=== PATIENT | female | born 1955 | race African-American/Black ===

== ENCOUNTER 2021-02-20 13:04 | Emergency (ER) | payer MEDICARE, MEDICAID, SELFPAY ==
[2021-02-20 16:48] VITALS: BP 135/71; PULSE 73; RESP 16; TEMP 37.1; O2SAT 94; BMI 29.0
--- NOTE | 2021-02-20 18:14 | ED_ITS ---
HPI - General Adult General Chief complaint: General Medical Stated complaint: Shingles Time Seen by Provider: 02/20/21 18:14 History of Present Illness HPI narrative: 65-year-old female with past medical history of diabetes, COPD, Congestive heart failure, hydronephrosis is here today for rash to her right side of her head just behind her ear. Patient reports that this rash is on 1 side. Patient [place] [facility] and was sent home with valacyclovir 1000 mg b.i.d. for 7 days. Patient reports that she finished the treatment yesterday, and reports that today she has continues to have pain, pruritus. Patient reports that the rash has not spread. Patient reports of earache. No eye pain, sore throat, fever or chills. Related Data Previous Rx's Medication Instructions Recorded hydroxyzine HCl 25 mg tablet 25 mg PO BID PRN #14 tab 02/20/21 oxycodone 10 mg tablet 10 mg PO Q8H PRN #10 tab 02/20/21 oxycodone 5 mg tablet 5 mg PO Q4-6H PRN #5 tab 02/20/21 prednisone 20 mg tablet 40 mg PO DAILY 5 Days #10 tab 02/20/21 valacyclovir 1 gram tablet 1,000 mg PO Q8H 7 Days #21 tab 02/20/21 Allergies Allergy/AdvReac Type Severity Reaction Status Date / Time morphine [MORPHINE] Allergy Mild HIVES AT Unverified 11/11/19 16:15 INJECTION SITE aspirin [Aspirin] Allergy Unknown HIVES, Unverified 11/11/19 16:15 itching, hives benazepril Allergy Unknown Verified 09/14/14 00:00 codeine [Codeine] Allergy Unknown HIVES, Unverified 11/11/19 16:15 itching, hives dexamethasone [From DECADRON] Allergy Unknown HIVES ITCH Unverified 11/11/19 16:15 ibuprofen [From Motrin] Allergy Unknown HIVES, Unverified 11/11/19 16:15 itching Iodinated Contrast Media Allergy Unknown ANAPHYLAXIS Unverified 11/11/19 16:15 [IV Dye, Iodine Containing] levofloxacin [From LEVAQUIN] Allergy Unknown HIVES Unverified 11/11/19 16:15 NSAIDS (Non-Steroidal Allergy Unknown HIVES Unverified 11/11/19 16:15 Anti-Inflamma [Nsaids] povidone-iodine Allergy Unknown HIVES ITCH Unverified 11/11/19 16:15 [From BETADINE] soap [From BETADINE] Allergy Unknown HIVES ITCH Unverified 11/11/19 16:15 tramadol Allergy Unknown itching, Verified 09/14/14 00:00 hives decadron Allergy Unknown hives Uncoded 09/14/14 00:00 From Compazine Allergy Unknown HIVES Uncoded 11/11/19 16:15 From Lotensin Allergy Unknown HIVES Uncoded 11/11/19 16:15 From Toradol Allergy Unknown HIVES Uncoded 11/11/19 16:15 From Ultram Allergy Unknown HIVES Uncoded 11/11/19 16:15 IVP dye Allergy Unknown itching, Uncoded 09/14/14 00:00 hives Prochlorperazine Maleate Allergy Unknown oral Uncoded 09/14/14 00:00 itching Review of Systems Review of Systems: Constitutional : No Weight loss, No Fever, No Chills, No Night Sweats, No Fatigue, No Malaise ENT/Mouth : No Hearing loss, right Ear Pain, No Nasal Congestion, No Sinus Pa in, No Hoarseness, No sore throat, No Rhinorrhea, No Swallowing Difficulty Eyes: No Eye Pain, No Swelling, No Redness, No Foreign Body, No Discharge, No Vision Changes Cardiovascular : No Chest Pain, No SOB, No Dyspnea on Exertion, No Orthopnea, No Edema, No Palpitations Respiratory : No Cough, No Sputum, No Wheezing, No Smoke Exposure, No Dyspnea Gastrointestinal : No Nausea, No Vomiting, No Diarrhea, No Constipation, No abdominal Pain, No Hematochezia, No Melena Genitourinary : no irregular bleeding, No Dysuria, No Urinary Frequency, No Hematuria, No Urinary Incontinence, No Urgency, No Flank Pain, No Urinary Flow Changes, No Hesitancy Musculoskeletal : No joint pain, No Myalgias, No Joint Swelling Skin : No Skin Lesions, rash Neuro : No Weakness, No Numbness, No Paresthesias, No Loss of Consciousness, No Dizziness, No Headache Psych : No Anxiety/Panic, No Depression, No SI/HI/AH/VH, No Social Issues, Yes all other systems are reviewed and are negative PMFSH Social History Social History Advance Directives: No Advance Directives Information Provided: No Physical Exam Vital Signs: Vital Signs: Last Vital Signs Temp 98.7 F 02/20/21 16:48 Pulse 73 02/20/21 16:48 Resp 16 02/20/21 16:48 BP 135/71 02/20/21 16:48 Pulse Ox 94 02/20/21 16:48 BMI result Body Mass Index 29.0 Const: General: healthy appearing, no acute distress and well developed Nutritional Appearance: well nourished Orientation/consciousness: patient oriented x3 HENMT: Head: Yes normocephalic, Yes atraumatic and Yes other ( crusted areas behind her right ear, shing[place] [facility] Face and sinus: Yes normal facial exam Mouth: Normal oral and palatal mucosa present Throat: Yes posterior oropharynx normal, Yes tonsils normal and Yes uvula midline Eyes: General: appearance normal, both eyes and all related structures Neck: Neck: Yes normal visual inspection, Yes full ROM and Yes trachea midline Thyroid: Thyroid normal Resp: Effort & Inspection: normal respiratory effort, able to speak in complete sentences, no tracheal deviation and symmetric chest movement Auscultation: clear to auscultation bilaterally Cardio: Jugular venous distension: no JVD Rate: regular rate Heart sounds: S1 normal heart sound present, S2 normal heart sound present, no gallops and no murmurs GI: Inspection: Yes normal to inspection and No distended Palpation (GI): Soft to palpation, not firm, nontender and No hepatosplenomegaly present Auscultation: normal bowel sounds : General: Yes no CVA tenderness Back/Spine/Pelvis: Back: no CVA tenderness Skin: General skin exam: elasticity normal, turgor normal and dry skin Neuro: General: patient oriented x3 Psych: Appearance: grossly normal Mental Status: mental status grossly normal Speech and movement: Normal speech and movement present Affect: normal affect Attitude: cooperative Thought process: Normal thought process present Thought content: Normal thought content present Insight: Good insight present (Psych) Judgement: Good judgement present (Psych) Course Course Course Narrative: 65-year-old female with past medical history of diabetes, COPD, Congestive heart failure, hydronephrosis is here today for shingles to her right scalp area behind her right ear. Right ear exam shows no involvement. No of involvement in her right eye. I will check her creatinine level as she is a diabetic and has had hydronephrosis in the past and has seen test lead. I will give her dose of valacyclovir, prednisone, oxycodone and hydroxyzine for Pruritus. Reevaluation(s) Reevaluation #1: BUN 16, creatinine 0.91, creatinine clearance 68.6, GFR > 60. I will send patient home with full psych liver 1 g every 8 hours for 7 more days. Prednisone 40 mg for 5 days. Patient can take hydroxyzine. Time: 19:20 Medical Decision Making Lab Data Result diagrams: 02/20/21 18:54 Labs: Lab Results 02/20/21 Range/Units 18:54 BUN 16 (9-16) mg/dL Creatinine 0.91 (0.5-1.4) mg/dL Estim Creat Clear Calc 68.6 Estimated GFR > 60 Discharge Plan Discharge Clinical Impression: Shingles Qualifiers: Herpes zoster complications: without complications Qualified Code(s): B02.9 - Zoster without complications Patient Disposition: Home, Self-Care Instructions: Shingles (ED) Additional Instructions: You were diagnosed week ago with shingles. You continue to have pain, there is no spread of the rash. You will continue 7 more days of antiviral medication along with prednisone for 5 days. You will receive oxycodone 10 mg for pain. You also will receive medication to help with the itch. Please follow-up with your primary care provider for further care. Prescriptions: New valacyclovir 1 gram tablet 1,000 mg PO Q8H 7 Days Qty: 21 RF: 0 oxycodone 5 mg tablet 5 mg PO Q4-6H PRN (Reason: pain) Qty: 5 RF: 0 hydroxyzine HCl 25 mg tablet 25 mg PO BID PRN (Reason: itching) Qty: 14 RF: 0 prednisone 20 mg tablet 40 mg PO DAILY 5 Days Qty: 10 RF: 0 oxycodone 10 mg tablet 10 mg PO Q8H PRN (Reason: pain) Qty: 10 RF: 0 Referrals: Melinda Shin MD [Primary Care Provider] - 10 days ( Shingles) Interventions: ED Discharge Assessment Last Done: 02/20/21 19:45 Discharge Date/Time: 02/20/21 19:46
[2021-02-20] MEDS: oxyCODONE HCl Immed Release 5 MG TABLET PO (18:47)
[2021-02-20] MEDS: predniSONE 20 MG TABLET 40 MG PO (18:47)
[2021-02-20] MEDS: hydrOXYzine HCL 25 MG TABLET PO (18:56)
[2021-02-20 19:15] LABS: Blood Urea Nitrogen 16 mg/dL (9-16); Creatinine Clr Calc Pharmacy 68.6; Estimated Glomerular Filt Rate > 60
== END 2021-02-20 19:46 | disposition home or self-care (01) ==
PROVIDERS: Nurse Practitioner Family; Emergency Provider Emergency Medicine Emergency Medical Services; PCP Internal Medicine
DX: B02.9 Zoster without complications (principal); N13.30 Unspecified hydronephrosis; E11.9 Type 2 diabetes mellitus without complications; I50.9 Heart failure, unspecified; J44.9 Chronic obstructive pulmonary disease, unspecified
CPT/HCPCS: 36415; 82565; 84520; 99283

== ENCOUNTER 2021-08-24 16:17 | Emergency (ER) | payer MEDICARE, MEDICAID, SELFPAY ==
--- NOTE | ~2021-08-24 | CT_ITS ---
EXAMINATION: CT ABDOMEN AND PELVIS WITHOUT CONTRAST CLINICAL INFORMATION: Left lower quadrant hypogastric pain COMPARISON: CT abdomen and pelvis 03/06/2014 TECHNIQUE: Multidetector volumetric imaging was performed from the superior aspect of the liver through the pubic symphysis. Sagittal and coronal reformatted images were obtained on the technologist's workstation. This CT examination was performed using dose optimization techniques as appropriate, variously including the following: *Automated exposure control *Adjustment of mA and/or kV according to patient size (this includes techniques or standardized protocols for targeted exams where dose is matched to indication/reason for exam; i.e. extremities or head) *Use of iterative reconstruction technique DLP: 1020 mGy-cm FINDINGS: LUNG BASES: Mild coarsening reticulation at the lung bases compatible some combination of mild atelectasis and mild fibrosis are in pacer lead tip terminates in the right ventricle. Surgical clips in the left breast with an adjacent 3 cm low-density collection. LIVER, GALLBLADDER, AND BILIARY TREE: Normal hepatic attenuation. No morphologic features of cirrhosis. No liver lesions are seen. Mild intrahepatic biliary ductal dilation. Proximal extra hepatic bile duct measures 1 cm in diameter, at the upper limits of normal status post cholecystectomy. Status post cholecystectomy with surgical clips in the gallbladder fossa. PANCREAS: Mild pancreatic atrophy. No pancreatic lesion or peripancreatic inflammatory change. SPLEEN: Unremarkable. ADRENAL GLANDS: Unremarkable. KIDNEYS AND URETERS: Small benign appearing low-density cysts measuring 2.1 cm in the right upper pole and left mid pole. No radiodense urinary tract calculi. No perinephric collections. No hydronephrosis. BLADDER: Unremarkable. GASTROINTESTINAL TRACT: Colonic diverticulosis. No evidence of acute diverticulitis. Small amount of formed stool in the sigmoid colon. Remainder of the colon is decompressed. No dilated bowel loops. Unremarkable appearance of the stomach. Appendix is not identified. No inflammatory changes at the cecal base. No ascites or free air. Subcutaneous material adjacent to the base of the cecum. Surgical clips in the upper pelvis. ABDOMINAL WALL: Healed midline abdominal incision. No hernia. LYMPH NODES: No lymphadenopathy. VASCULAR: Mildly tortuous abdominal aorta. Mild vascular calcifications. No abdominal aortic aneurysm. PELVIC VISCERA: Status post hysterectomy. OSSEOUS STRUCTURES: No acute fracture or suspicious osseous lesion. Mild multilevel degenerative disc disease. Lower lumbar facet arthrosis. CT/CT abdomen pelvis wo con IMPRESSION: 1. No acute intra-abdominal process identified. 2. Colonic diverticulosis without evidence of acute diverticulitis. The right, transverse and descending colon are decompressed limiting assessment for colonic wall thickening. No definite colonic wall thickening or pericolonic inflammatory changes to suggest colitis. 3. Status post cholecystectomy. Mild dilation of the intrahepatic bile ducts, which may be normal for this patient, appearing minimally more prominent than on prior of 2014. Correlate with LFTs for clinical significance. 4. Small 3 cm low-density collection or nodule in the left breast adjacent surgical clips. Correlate with mammographic history.
[2021-08-24 16:22] VITALS: BP 128/80; PULSE 88; O2SAT 98
[2021-08-24 16:32] VITALS: BP 100/62; PULSE 99; RESP 18; TEMP 36.7; O2SAT 98; BMI 39.4
--- NOTE | 2021-08-24 17:33 | PC.NURSE ---
Pt now reporting CP and described as severe. EKG in triage.
--- NOTE | 2021-08-24 17:35 | ECG_ITS ---
Test Reason : cp Blood Pressure : / mmHG Vent. Rate : 097 BPM Atrial Rate : 097 BPM P-R Int : 188 ms QRS Dur : 094 ms QT Int : 374 ms P-R-T Axes : 056 -39 057 degrees QTc Int : 474 ms Normal sinus rhythm Possible Left atrial enlargement Left axis deviation Left ventricular hypertrophy ( R in aVL , [place] product ) Abnormal ECG When compared with ECG of 22-JUL-2014 13:46, No significant change was found Referred By: Generic ED Physician Electronically Signed By:REEMA SUAZO
--- NOTE | 2021-08-24 17:40 | PC.NURSE ---
Pt refusing Blood draw. Requesting port be accessed for triage.
--- NOTE | 2021-08-24 17:48 | PC.NURSE ---
EKG obtatined. Shown to Jia SPARROW due to MD being with high acuity patient.
--- NOTE | 2021-08-24 20:20 | ED_ITS ---
HPI - Abdominal Pain General Chief Complaint: Abdominal Pain Stated Complaint: ABD PAIN X 1 WEEK Time Seen by Provider: 08/24/21 20:19 Source: patient Mode of arrival: ambulatory Limitations: no limitations History of Present Illness HPI narrative: 65-year-old female with a history of diverticulitis presents today with 4 days of abdominal pain located directly above and below the belly button she reports the pain as a 9/10 the pain does not radiate, nothing makes it better, it is made worse by eating and drinking, she reports 4 bowel movements since arrival to the emergency department. She reports her stool as soft it is not dark or containing blood to her knowledge. She also reports that she is burping and it smells like feces?. She reports to me that she was discharged 4 days ago from [facility] and she does not want to return there due to the fact that they were treating her for CHF/CKD/electrolyte abnormalities and not for her abdomen, she also thinks they believe she is med seaking. She reports only taking Tylenol and omeprazole however this has provided no relief. Related Data Previous Rx's Medication Instructions Recorded hydroxyzine HCl 25 mg tablet 25 mg PO BID PRN itching #14 tabs 02/20/21 oxycodone 10 mg tablet 10 mg PO Q8H PRN pain #10 tabs 02/20/21 oxycodone 5 mg tablet 5 mg PO Q4-6H PRN pain #5 tabs 02/20/21 prednisone 20 mg tablet 40 mg PO DAILY 5 days #10 tabs 02/20/21 valacyclovir 1 gram tablet 1,000 mg PO Q8H 7 days #21 tabs 02/20/21 nitrofurantoin macrocrystal 100 mg 100 mg PO BID 7 days #14 caps 08/25/21 capsule Allergies Allergy/AdvReac Type Severity Reaction Status Date / Time morphine [MORPHINE] Allergy Mild HIVES AT Unverified 11/11/19 16:15 INJECTION SITE aspirin [Aspirin] Allergy Unknown HIVES, Unverified 11/11/19 16:15 itching, hives benazepril Allergy Unknown Verified 09/14/14 00:00 codeine [Codeine] Allergy Unknown HIVES, Unverified 11/11/19 16:15 itching, hives dexamethasone [From DECADRON] Allergy Unknown HIVES ITCH Unverified 11/11/19 16:15 ibuprofen [From Motrin] Allergy Unknown HIVES, Unverified 11/11/19 16:15 itching Iodinated Contrast Media Allergy Unknown ANAPHYLAXIS Unverified 11/11/19 16:15 [IV Dye, Iodine Containing] levofloxacin [From LEVAQUIN] Allergy Unknown HIVES Unverified 11/11/19 16:15 NSAIDS (Non-Steroidal Allergy Unknown HIVES Unverified 11/11/19 16:15 Anti-Inflamma [Nsaids] povidone-iodine Allergy Unknown HIVES ITCH Unverified 11/11/19 16:15 [From BETADINE] soap [From BETADINE] Allergy Unknown HIVES ITCH Unverified 11/11/19 16:15 tramadol Allergy Unknown itching, Verified 09/14/14 00:00 hives decadron Allergy Unknown hives Uncoded 09/14/14 00:00 From Compazine Allergy Unknown HIVES Uncoded 11/11/19 16:15 From Lotensin Allergy Unknown HIVES Uncoded 11/11/19 16:15 From Toradol Allergy Unknown HIVES Uncoded 11/11/19 16:15 From Ultram Allergy Unknown HIVES Uncoded 11/11/19 16:15 IVP dye Allergy Unknown itching, Uncoded 09/14/14 00:00 hives Prochlorperazine Maleate Allergy Unknown oral Uncoded 09/14/14 00:00 itching Review of Systems Review of Systems Constitutional : No Weight loss, No Fever, No Chills, No Fatigue, No Malaise ENT/Mouth : No sore throat, No Rhinorrhea Eyes: No Eye Pain, No Swelling, No Redness Cardiovascular : No Chest Pain, No SOB, No Dyspnea on Exertion, No Orthopnea, No Edema, No Palpitations Respiratory : No Cough, No Sputum, No Wheezing Gastrointestinal : + Belching, + Abdominal Pain, No Nausea, No Vomiting, No Diarrhea, No Constipation, No Hematochezia, No Melena Genitourinary : No Dysuria, No Urinary Frequency, No Hematuria, Musculoskeletal : No joint pain, No Myalgias, No Joint Swelling Skin : No Skin Lesions, No rash Neuro : No Weakness, No Numbness, No Dizziness, No Headache Psych : No Anxiety/Panic, No Depression Heme/Lymph: No Bruising, No Bleeding,No Lymphadenopathy Endocrine : No Polyuria, No Polydipsia All other systems reviewed and are negative Yes all other systems are reviewed and are negative [facility] Past Medical History Attestation statement: The following information was validated with the patient. Source: old records reviewed and nursing notes reviewed Social History Social History Alcohol intake: never Patient Tobacco Use Status: Never used Tobacco Advance Directives: No Advance Directives Information Provided: Yes Physical Exam ED Vital Signs: Vital Signs - 24 hr 08/24/21 16:32 08/24/21 21:39 08/24/21 22:00 Temperature 98.1 F Pulse Rate 99 104 H 101 H Respiratory Rate 18 16 16 Blood Pressure 100/62 102/81 Pulse Oximetry 98 98 98 Oxygen Delivery Method Room Air Room Air BMI result Body Mass Index 39.4 VSS Appearance: Alert.? Oriented X3.? No acute distress.? Head: Normocephalic, atraumatic, no step-offs or deformities Eyes: Pupils equal, round and reactive to light.? ENT: Pharynx normal.? Neck: Normal inspection.? Neck supple.? CVS: Normal heart rate and rhythm.? Pulses normal.? Respiratory: No respiratory distress.? Breath sounds normal.? Abdomen: +Tender around the umbilicus and the LLQ, Soft, normal bowel sounds Skin: Skin warm and dry.? Normal skin color.? Normal skin turgor.? Extremities: No lower extremity edema.? No calf ttp. 5/5 strength to bilateral upper and lower extremities Back: No midline tenderness, no C-spine tenderness, full range of motion, no CVA tenderness bilaterally Neuro: Oriented X 3.? No motor deficit.? No sensory deficit. CN 2-12 intact Course Reevaluation(s) Reevaluation #1: CBC within normal limits. Chemistry pending. Urine pending. CT of the abdomen and pelvis pending. Time: 22:05 Reevaluation #2: CT of the abdomen and pelvis is no acute findings,LFTs normal. At approximately 2300 patient complained chest pain requested dilauded and morphine therefore an EKG and troponin were obtained. EKG was nonischemic and troponin was negative. Patient noted to have a UTI could be contributing to pain. Time: 01:37 Reevaluation #3: Discussed CT, labs, urine with patient. At this time patient will be discharged home with prompt PCP follow-up. I advised her to follow-up with Gastroenterology and return with new or worsening symptoms which are outlined on her discharge. Pending 2nd troponin then plan is for patient to be discharged home. Report given to Dr. Galeas. Time: 01:52 MDM - Abdominal Pain MDM Narrative Medical decision making narrative: 850 65-year-old female presents with abdominal pain she reports this pain has been intermittent for 4 days, she also reports ?belching that smells like feces?. She was recently discharged from [facility]. Physical exam: Tenderness around the umbilicus and left lower quadrant Unlikely AAA, acute abdomen, appendicitis, sbo. Order imaging to rule out diverticulitis and urine to r/o UTI. Unlikely appendicitis, pancreatitis Plan: Abdominal CT, basic labs, ua Patient eating and drinking at bedside w/o isuses. Medical Records Attestation: I reviewed the patient's medical records. Lab Data Attestation: I reviewed the patient's lab results. Result diagrams: 08/24/21 21:45 08/24/21 21:45 Labs: Lab Results 08/24/21 08/24/21 08/24/21 Range/Units 21:45 21:45 23:27 WBC 4.9 (4.8-10.8) X10*3/uL RBC 4.81 (4.20-5.50) X10*6/uL Hgb 13.1 (12.0-16.0) g/dl Hct 43.1 (37.0-47.0) % MCV 89.6 (80.0-98.0) fL MCH 27.2 (27.0-33.0) pg MCHC 30.4 L (31.0-35.0) g/dl RDW 13.7 (11.0-16.0) % Plt Count 192 (160-400) X10*3/uL MPV 9.5 (9.4-12.3) fL Immature Gran % (Auto) 0.4 (0.0-0.4) % Neut % (Auto) 44.3 L (45-73) % Lymph % (Auto) 42.8 H (20-40) % Greenlee % (Auto) 8.6 (2-11) % Eos % (Auto) 3.5 (0-4) % Baso % (Auto) 0.4 (0-2) % Lymph # (Auto) 2.1 (1.2-4.9) X10*3/uL Greenlee # (Auto) 0.4 (0.1-1.2) X10*3/uL Eos # (Auto) 0.2 (0.0-0.4) X10*3/uL Baso # (Auto) 0.0 (0.0-0.2) X10*3/uL Abs Immat Gran (auto) 0.02 (0.00-0.03) X10*3/uL Absolute Neuts (auto) 2.2 (2.0-8.3) x10*3/uL Absolute Nucleated RBC 0.000 (0.0-0.012) X10*3/uL Nucleated RBC % (auto) 0.0 (0.0-0.2) /100WBC Sodium 140 (135-145) mmol/L Potassium 4.4 (3.3-5.1) mmol/L Chloride 102 (96-108) mmol/L Carbon Dioxide 30 H (22-29) mmol/L Anion Gap 12 (12-20) BUN 13 (9-16) mg/dL Creatinine 0.89 (0.5-1.4) mg/dL Estim Creat Clear Calc 79.4 Estimated GFR > 60 Random Glucose 284 H (60-115) mg/dL Calcium 8.8 (8.4-10.2) mg/dL Total Bilirubin 0.2 (0.0-1.0) mg/dL Direct Bilirubin < 0.2 (0.0-0.5) mg/dL AST 12 (5-31) U/L ALT 16 (0-31) U/L Alkaline Phosphatase 87 (39-117) U/L Troponin I High Sens 9.3 (<3.5-17.0) ng/L Total Protein 6.9 (6.5-8.0) g/dL Albumin 3.5 (3.5-5.0) g/dL Lipase 17 (8-78) U/L Urine Color Urine Appearance Urine pH (5.0-8.0) Ur Specific Waucoma (1.005-1.025) Urine Protein (NEG-TRACE) MG/DL Urine Glucose (UA) (NEG) MG/DL Urine Ketones (NEG) MG/DL Urine Blood (NEG) Urine Nitrite (NEG) Ur Leukocyte Esterase (NEG) Urine RBC (0) /HPF Urine WBC (0-4) /HPF Ur Squamous Epith Cells /LPF Ur Renal Epithelial Cell /LPF Urine Bacteria /LPF Urine Mucus /LPF 08/24/21 Range/Units 23:27 WBC (4.8-10.8) X10*3/uL RBC (4.20-5.50) X10*6/uL Hgb (12.0-16.0) g/dl Hct (37.0-47.0) % MCV (80.0-98.0) fL MCH (27.0-33.0) pg MCHC (31.0-35.0) g/dl RDW (11.0-16.0) % Plt Count (160-400) X10*3/uL MPV (9.4-12.3) fL Immature Gran % (Auto) (0.0-0.4) % Neut % (Auto) (45-73) % Lymph % (Auto) (20-40) % Greenlee % (Auto) (2-11) % Eos % (Auto) (0-4) % Baso % (Auto) (0-2) % Lymph # (Auto) (1.2-4.9) X10*3/uL Greenlee # (Auto) (0.1-1.2) X10*3/uL Eos # (Auto) (0.0-0.4) X10*3/uL Baso # (Auto) (0.0-0.2) X10*3/uL Abs Immat Gran (auto) (0.00-0.03) X10*3/uL Absolute Neuts (auto) (2.0-8.3) x10*3/uL Absolute Nucleated RBC (0.0-0.012) X10*3/uL Nucleated RBC % (auto) (0.0-0.2) /100WBC Sodium (135-145) mmol/L Potassium (3.3-5.1) mmol/L Chloride (96-108) mmol/L Carbon Dioxide (22-29) mmol/L Anion Gap (12-20) BUN (9-16) mg/dL Creatinine (0.5-1.4) mg/dL Estim Creat Clear Calc Estimated GFR Random Glucose (60-115) mg/dL Calcium (8.4-10.2) mg/dL Total Bilirubin (0.0-1.0) mg/dL Direct Bilirubin (0.0-0.5) mg/dL AST (5-31) U/L ALT (0-31) U/L Alkaline Phosphatase (39-117) U/L Troponin I High Sens (<3.5-17.0) ng/L Total Protein (6.5-8.0) g/dL Albumin (3.5-5.0) g/dL Lipase (8-78) U/L Urine Color YELLOW Urine Appearance CLEAR Urine pH 5.5 (5.0-8.0) Ur Specific [place] 1.025 (1.005-1.025) Urine Protein NEG (NEG-TRACE) MG/DL Urine Glucose (UA) 250 H (NEG) MG/DL Urine Ketones NEG (NEG) MG/DL Urine Blood 3+ H (NEG) Urine Nitrite NEG (NEG) Ur Leukocyte Esterase 1+ H (NEG) Urine RBC 10-14 H (0) /HPF Urine WBC 0-2 (0-4) /HPF Ur Squamous Epith Cells 2+ /LPF Ur Renal Epithelial Cell TRACE /LPF Urine Bacteria TRACE /LPF Urine Mucus TRACE /LPF ECG Data Attestation: I personally reviewed and interpreted this ECG as follows: ECG interpretation date: 08/25/21 ECG interpretation time: 01:38 Prior ECG tracings: available for review Interpretation: Ventricular rate of 97, MI normal, QRS normal, QT/QTC normal. EKG shows normal sinus rhythm, left axis deviation, no ST elevations or inversions concerning for ischemia. No significant changes when compared to EKG of June 2014. Critical Care Time Critical Care Time Critical Care Time: No Discharge Plan Discharge Clinical Impression: Abdominal pain, Acute UTI Patient Disposition: Home, Self-Care Instructions: Abdominal Pain (ED) Additional Instructions: Take your medications as prescribed. If you were prescribed antibiotics today, it is important that you take your medication to their entirety, do not skip any doses, do not finish them early. Follow-up with your primary care provider this week. Return to the emergency department with new or worsening symptoms. Such as fevers, chills, chest pain, shortness of breath, nausea, vomiting, dizziness, headache, vision changes, lethargy In case of emergency call 911 CT/CT abdomen pelvis wo con IMPRESSION: ? 1. No acute intra-abdominal process identified. 2. Colonic diverticulosis without evidence of acute diverticulitis. The right, transverse and descending colon are decompressed limiting assessment for colonic wall thickening. No definite colonic wall thickening or pericolonic inflammatory changes to suggest colitis. 3. Status post cholecystectomy. Mild dilation of the intrahepatic bile ducts, which may be normal for this patient, appearing minimally more prominent than on prior of 2014. Correlate with LFTs for clinical significance. 4. Small 3 cm low-density collection or nodule in the left breast adjacent surgical clips. Correlate with mammographic history. Small breast nodule noted please follow up with your PCP Prescriptions: New nitrofurantoin macrocrystal 100 mg capsule 100 mg PO BID 7 Days Qty: 14 0RF Rx Instructions: must administer with a meal/food No Action valacyclovir 1 gram tablet 1,000 mg PO Q8H 7 Days Qty: 21 0RF oxycodone 5 mg tablet 5 mg PO Q4-6H PRN (Reason: pain) Qty: 5 0RF Rx Instructions: Patient may request fewer tablets than prescribed hydroxyzine HCl 25 mg tablet 25 mg PO BID PRN (Reason: itching) Qty: 14 0RF prednisone 20 mg tablet 40 mg PO DAILY 5 Days Qty: 10 0RF oxycodone 10 mg tablet 10 mg PO Q8H PRN (Reason: pain) Qty: 10 0RF Referrals: Melinda Shin MD [Primary Care Provider] - 2 days Oniel Forte [Physician] - 2 weeks Stand Alone Forms: Work/School Release
[2021-08-24 21:39] VITALS: BP 102/81; PULSE 104; RESP 16; O2SAT 98
[2021-08-24 21:50] LABS: MANUAL DIFF FLAG NO
[2021-08-24 21:58] LABS: Basophils Percent Auto 0.4 % (0-2); Eosinophils Absolute Auto 0.2 X10*3/uL (0.0-0.4); Eosinophils Percent Auto 3.5 % (0-4); Hematocrit 43.1 % (37.0-47.0); Hemoglobin 13.1 g/dl (12.0-16.0); Imm Gran Abs Auto 0.02 X10*3/uL (0.00-0.03); Imm Gran Pct Auto 0.4 % (0.0-0.4); Lymphocytes Absolute Auto 2.1 X10*3/uL (1.2-4.9); Lymphocytes Percent Auto 42.8 % (20-40); Mean Corpuscular HGB Conc 30.4 g/dl (31.0-35.0); Mean Corpuscular Hemoglobin 27.2 pg (27.0-33.0); Mean Corpuscular Volume 89.6 fL (80.0-98.0); Mean Platelet Volume 9.5 fL (9.4-12.3); Monocytes Absolute Auto 0.4 X10*3/uL (0.1-1.2); Monocytes Percent Auto 8.6 % (2-11); Neutrophils Absolute Auto 2.2 x10*3/uL (2.0-8.3); Neutrophils Percent Auto 44.3 % (45-73); Platelet Count 192 X10*3/uL (160-400); Red Blood Count 4.81 X10*6/uL (4.20-5.50); Red Cell Distribution Width 13.7 % (11.0-16.0); White Blood Count 4.9 X10*3/uL (4.8-10.8)
[2021-08-24 22:00] VITALS: PULSE 101; RESP 16; O2SAT 98
[2021-08-24 22:09] LABS: Alanine Aminotransferase 16 U/L (0-31); Albumin Level 3.5 g/dL (3.5-5.0); Alkaline Phosphatase 87 U/L (39-117); Anion Gap 12 (12-20); Aspartate Amino Transferase 12 U/L (5-31); Bilirubin Direct < 0.2 mg/dL (0.0-0.5); Bilirubin Total 0.2 mg/dL (0.0-1.0); Blood Urea Nitrogen 13 mg/dL (9-16); Calcium 8.8 mg/dL (8.4-10.2); Carbon Dioxide 30 mmol/L (22-29); Chloride 102 mmol/L (96-108); Creatinine Clr Calc Pharmacy 79.4; Estimated Glomerular Filt Rate > 60; Glucose Random 284 mg/dL (60-115); Lipase 17 U/L (8-78); Potassium 4.4 mmol/L (3.3-5.1); Sodium 140 mmol/L (135-145); Total Protein 6.9 g/dL (6.5-8.0)
--- NOTE | 2021-08-24 23:00 | ECG_ITS ---
Test Reason : CP Blood Pressure : / mmHG Vent. Rate : 103 BPM Atrial Rate : 103 BPM P-R Int : 182 ms QRS Dur : 098 ms QT Int : 364 ms P-R-T Axes : 062 -43 059 degrees QTc Int : 476 ms Sinus tachycardia Left axis deviation Moderate voltage criteria for LVH, may be normal variant ( R in aVL , [place] product ) Abnormal ECG When compared with ECG of 24-AUG-2021 17:39, No significant change was found Referred By: Reyes Muñoz Electronically Signed By:Cooper James
[2021-08-24] MEDS: Morphine Sulfate Immed Release 15 MG TABLET PO (23:16)
--- NOTE | 2021-08-24 23:16 | PC.NURSE ---
this rn notes morphine listed as an allergy. pt reports it is not an allergy and that she has tolerated this medication several times without incidence
[2021-08-24 23:37] LABS: Appearance Urine CLEAR; Color Urine YELLOW; Glucose Urine UA 250 MG/DL (NEG); Leukocyte Esterase Urine 1+ (NEG); Nitrite Urine NEG (NEG); PH 5.5 (5.0-8.0); Specific Gravity - Urine 1.025 (1.005-1.025); UACC Culture Trigger YES; Urine Blood 3+ (NEG); Urine Ketones NEG (NEG); Urine Protein NEG (NEG-TRACE)
[2021-08-24 23:52] LABS: Troponin-I High Sensitivity 9.3 ng/L (<3.5-17.0)
[2021-08-25 00:06] LABS: Bacteria Urine TRACE /LPF; Mucus Urine TRACE /LPF; Renal Epithelial Cells Urine TRACE /LPF; Squamous Epithelial Cell Urine 2+ /LPF; WBC Urine 0-2 /HPF (0-4)
[2021-08-25 02:40] LABS: Troponin-I High Sensitivity 11.2 ng/L (<3.5-17.0)
--- NOTE | 2021-08-25 04:06 | PC.NURSE ---
Addendum entered by Mariel Piedra 08/25/21 04:14: pt refuses d/c vital Original Note: Dr. Galeas brought to bedside for D/C instructions with the pt, pt asking for narcotic to go home with, Dr. Galeas educated her on her diagnoses
== END 2021-08-25 04:14 | disposition home or self-care (01) ==
PROVIDERS: Physician Assistant; Emergency Provider Internal Medicine; PCP Internal Medicine
DX: N39.0 Urinary tract infection, site not specified (principal); R10.2 Pelvic and perineal pain; R07.89 Other chest pain; Z79.899 Other long term (current) drug therapy
CPT/HCPCS: 36415; 74176; 80048; 80076; 81001; 83690; 84484; 85025; 87086; 93005; 99284; 99285

== ENCOUNTER 2022-06-13 17:03 | Inpatient (IN) | payer MEDICARE, MEDICAID, SELFPAY ==
[2022-06-13] VITALS (13 sets, daily range): BP systolic 77–108; BP diastolic 42–66; PULSE 78–99; RESP 14–18; TEMP 36.8; O2SAT 98–100; BMI 35.4
--- NOTE | ~2022-06-13 | CT_ITS ---
EXAMINATION: CT ABDOMEN AND PELVIS WITHOUT CONTRAST CLINICAL INFORMATION: Right-sided flank pain. COMPARISON: CT scan abdomen pelvis 08/24/2021 TECHNIQUE: Multidetector volumetric imaging was performed from the superior aspect of the liver through the pubic symphysis. Sagittal and coronal reformatted images were obtained on the technologist's workstation. This CT examination was performed using dose optimization techniques as appropriate, variously including the following: *Automated exposure control *Adjustment of mA and/or kV according to patient size (this includes techniques or standardized protocols for targeted exams where dose is matched to indication/reason for exam; i.e. extremities or head) *Use of iterative reconstruction technique DLP: 769 mGy-cm FINDINGS: LUNG BASES: Patchy and partially consolidated airspace opacities in the right lung base concerning for pneumonia. These are new since the CT exam of 08/24/2021. No dependent pleural effusion. Heart size enlarged. Pacemaker leads in right atrium and right ventricle. LIVER, GALLBLADDER, AND BILIARY TREE: Lobular contour of liver surface suggesting cirrhosis. No focal liver lesion or intrahepatic bile duct dilatation. Right lobe of liver measures 16 cm superior inferior. Status post cholecystectomy. Chronic dilatation of the extrahepatic CBD unchanged since prior studies. PANCREAS: Unremarkable. SPLEEN: Unremarkable. ADRENAL GLANDS: Unremarkable. KIDNEYS AND URETERS: The kidneys are normal in size, shape, and attenuation. No hydronephrosis, hydroureter, or calculi seen. No perinephric stranding. Cyst in the upper pole right kidney and in the midpole of left kidney. No follow-up imaging is recommended for simple renal cyst. BLADDER: Unremarkable. GASTROINTESTINAL TRACT: There are a few scattered diverticula of the colon. There is no diverticulitis. There is no bowel wall thickening /edema. There is no bowel obstruction. There is a moderate volume of stool in the colon. The appendix is nonvisualized . There is no inflammation the mesentery The small bowel loops are unremarkable. The stomach is normal. There is no hiatal hernia. MESENTERY: Surgical clips in the low pelvis. No inflammation. No free air or free fluid. ABDOMINAL WALL: No significant hernia is appreciated. LYMPH NODES: Normal. VASCULAR: Small volume of vascular calcifications of the abdominal aorta. There is no aneurysm. PELVIC VISCERA: Uterus is absent. No adnexal abnormality. OSSEOUS STRUCTURES: Unremarkable. CT/CT abdomen pelvis wo IV con IMPRESSION: 1. No acute abnormality CT scan abdomen pelvis. 2. Patchy and partially consolidated airspace opacities in the right lung base concerning for pneumonia. 3. Cardiomegaly. Pacemaker leads in heart. 4. Status post cholecystectomy. 5. Diverticulosis of colon. No acute abnormality of the bowel. Fleischner guidelines were followed.
--- NOTE | ~2022-06-13 | XR_ITS ---
EXAMINATION: XR CHEST CLINICAL INFORMATION: Shortness of breath. COMPARISON: Most recent chest radiograph dated 07/22/2014. TECHNIQUE: Frontal view of the chest was obtained. FINDINGS: Left chest wall AICD with its leads overlying the right heart. Right chest wall port with the catheter tip in the region of the SVC. Mild hypoinflation of the lungs with streaky bibasilar opacities which could represent atelectasis versus early infiltrates. Patchy opacity within the right lung apex which could represent atelectasis versus early infiltrates. No pleural effusion or pneumothorax. Stable cardiomediastinal silhouette. XR/XR chest 1V IMPRESSION: 1. Mild hypoinflation of the lungs with streaky bibasilar opacities which could represent atelectasis versus early infiltrates. 2. Patchy right apical opacity which could represent atelectasis versus early infiltrates.
--- NOTE | 2022-06-13 07:42 | ECG_ITS ---
Test Reason : UNKNOWN Blood Pressure : / mmHG Vent. Rate : 102 BPM Atrial Rate : 102 BPM P-R Int : 192 ms QRS Dur : 096 ms QT Int : 386 ms P-R-T Axes : 045 -31 056 degrees QTc Int : 503 ms Sinus tachycardia Left axis deviation Minimal voltage criteria for LVH, may be normal variant ( Blain product ) Abnormal ECG When compared with ECG of 13-JUN-2022 17:57, Premature ventricular complexes are no longer Present Referred By: Lori Vasquez Electronically Signed By:REEMA SUAZO
--- NOTE | 2022-06-13 17:14 | ED.GENADULT ---
HPI - General Adult General Chief complaint: General Medical Stated complaint: weakness Time Seen by Provider: 06/13/22 17:04 Source: patient Mode of arrival: EMS Limitations: no limitations History of Present Illness HPI narrative: Patient comes to the emergency room via ambulance from a walk-in Clinic in [place]. Patient states that she went to the clinic there, complaining of bilateral upper back pain, general weakness and malaise, nausea, dysuria, suprapubic discomfort worse with urination. Denies fever or chills. Related Data Home Medications Medication Instructions Recorded Confirmed albuterol sulfate 2.5 mg/3 mL 2.5 mg inhalation Q4H PRN 06/13/22 06/13/22 (0.083 %) solution for nebulization Shortness Of Breath Or Wheezing alprazolam 0.5 mg tablet 0.5 mg PO TID 06/13/22 06/13/22 carvedilol 3.125 mg tablet 3.125 mg PO BID 06/13/22 06/13/22 insulin glargine 100 unit/mL 30 unit subcut QPM 06/13/22 06/13/22 subcutaneous solution (Lantus U-100 Insulin) insulin lispro 100 unit/mL 10 unit subcut TID 06/13/22 06/13/22 subcutaneous cartridge (Humalog U-100 Insulin) loperamide 2 mg tablet 2 mg PO Q3H PRN Diarrhea 06/13/22 06/13/22 melatonin 10 mg tablet 20 mg PO BEDTIME 06/13/22 06/13/22 nitroglycerin 0.3 mg sublingual 0.3 mg sublingual Q5M PRN Chest 06/13/22 06/13/22 tablet Pain sacubitril 97 mg-valsartan 103 mg 1 tab PO BID 06/13/22 06/13/22 tablet (Entresto) zolpidem 5 mg tablet 10 mg PO BEDTIME 06/13/22 06/13/22 Allergies Allergy/AdvReac Type Severity Reaction Status Date / Time morphine [MORPHINE] Allergy Mild HIVES AT Unverified 11/11/19 16:15 INJECTION SITE aspirin [Aspirin] Allergy Unknown HIVES, Unverified 11/11/19 16:15 itching, hives benazepril Allergy Unknown Verified 09/14/14 00:00 codeine [Codeine] Allergy Unknown HIVES, Unverified 11/11/19 16:15 itching, hives dexamethasone [From DECADRON] Allergy Unknown HIVES ITCH Unverified 11/11/19 16:15 ibuprofen [From Motrin] Allergy Unknown HIVES, Unverified 11/11/19 16:15 itching Iodinated Contrast Media Allergy Unknown ANAPHYLAXIS Unverified 11/11/19 16:15 [IV Dye, Iodine Containing] levofloxacin [From LEVAQUIN] Allergy Unknown HIVES Unverified 11/11/19 16:15 NSAIDS (Non-Steroidal Allergy Unknown HIVES Unverified 11/11/19 16:15 Anti-Inflamma [Nsaids] povidone-iodine Allergy Unknown HIVES ITCH Unverified 11/11/19 16:15 [From BETADINE] soap [From BETADINE] Allergy Unknown HIVES ITCH Unverified 11/11/19 16:15 tramadol Allergy Unknown itching, Verified 09/14/14 00:00 hives decadron Allergy Unknown hives Uncoded 09/14/14 00:00 From Compazine Allergy Unknown HIVES Uncoded 11/11/19 16:15 From Lotensin Allergy Unknown HIVES Uncoded 11/11/19 16:15 From Toradol Allergy Unknown HIVES Uncoded 11/11/19 16:15 From Ultram Allergy Unknown HIVES Uncoded 11/11/19 16:15 IVP dye Allergy Unknown itching, Uncoded 09/14/14 00:00 hives Prochlorperazine Maleate Allergy Unknown oral Uncoded 09/14/14 00:00 itching Review of Systems Review of Systems: Constitutional : No Weight loss, No Fever, No Chills, No Night Sweats, complaining of fatigue and generalized malaise ENT/Mouth : No Hearing loss, No Ear Pain, No Nasal Congestion, No Sinus Pain, No Hoarseness, No sore throat, No Rhinorrhea, No Swallowing Difficulty Eyes: No Eye Pain, No Swelling, No Redness, No Foreign Body, No Discharge, No Vision Changes Cardiovascular : No Chest Pain, No SOB, No Dyspnea on Exertion, No Orthopnea, No Edema, No Palpitations Respiratory : No Cough, No Sputum, No Wheezing, No Smoke Exposure, No Dyspnea Gastrointestinal : No Nausea, No Vomiting, No Diarrhea, No Constipation, No abdominal Pain, No Hematochezia, No Melena Genitourinary : no irregular bleeding, complaining of Dysuria, No Urinary Frequency, No Hematuria, No Urinary Incontinence, No Urgency, complaining of mild right-sided Flank Pain, No Urinary Flow Changes, No Hesitancy Musculoskeletal : Complaining of bilateral upper back/shoulder pain, No Myalgias, No Joint Swelling Skin : No Skin Lesions, No rash Neuro : No Weakness, No Numbness, No Paresthesias, No Loss of Consciousness, No Dizziness, No Headache Psych : No Anxiety/Panic, No Depression, No SI/HI/AH/VH, No Social Issues, Heme/Lymph: No Bruising, No Bleeding,No Lymphadenopathy Endocrine : No Polyuria, No Polydipsia, No Temperature Intolerance [facility] Past Medical History Medical History (Updated 06/13/22 @ 22:20 by Lori Vasquez MD) CHF (congestive heart failure) Chronic kidney disease COPD (chronic obstructive pulmonary disease) Diabetes Diverticulitis Hydronephrosis Social History Social History Alcohol intake: never Patient Tobacco Use Status: Never used Tobacco Smoked in Last 30 Days: No Use of substances other than those prescribed or required for medical reasons: No Advance Directives: No Advance Directives Information Provided: No Physical Exam ED Vital Signs: Vital Signs - 24 hr 06/13/22 17:30 06/13/22 18:05 06/13/22 18:28 Temperature 98.3 F Pulse Rate 89 Respiratory Rate 18 Blood Pressure 85/42 L 86/47 L 86/47 L Pulse Oximetry 99 Oxygen Delivery Method Nasal Cannula Oxygen Flow Rate 06/13/22 18:44 06/13/22 19:48 06/13/22 20:02 Temperature Pulse Rate 92 89 Respiratory Rate 18 14 Blood Pressure 93/56 L 108/64 95/63 Pulse Oximetry 100 Oxygen Delivery Method Nasal Cannula Oxygen Flow Rate 2 06/13/22 20:10 06/13/22 20:13 06/13/22 21:46 Temperature Pulse Rate 94 99 Respiratory Rate 16 17 Blood Pressure 96/63 99/61 83/54 L Pulse Oximetry 100 Oxygen Delivery Method Room Air Nasal Cannula Oxygen Flow Rate 2 BMI result Body Mass Index 35.4 Const Other: Appearance: Alert. Oriented X3. No acute distress. Eyes: Pupils equal, round and reactive to light. ENT: Pharynx normal. Neck: Normal inspection. Neck supple. No lymph nodes noted. No crepitus CVS: Normal heart rate and rhythm. Pulses normal. Normal S1 and S2 Respiratory: No respiratory distress. Breath sounds normal. No Wheezing. No rales Abdomen: Soft and nontender. No rigidity. No distention. Skin: Skin warm and dry. Normal skin color. Normal skin turgor. Extremities: No lower extremity edema. No Lacerations. No Rash Neuro: Oriented X 3. No motor deficit. No sensory deficit. Moving all extremities. No slurred speech. CN 2 through 12 grossly intact Psych: calm, cooperative, normal affect Medications Administered Discontinued Medications Generic Name Dose Route Start Last Admin Trade Name Freq PRN Reason Stop Dose Admin Sodium Chloride 2,000 mls @ 999 mls/hr 06/13/22 18:06 06/13/22 20:00 Ns IVCONT 06/13/22 20:06 Infused .Q2H1M ONE Infusion Ceftriaxone Sodium 1 gm/ 50 mls @ 100 mls/hr 06/13/22 18:08 06/13/22 19:43 Sodium Chloride IV 06/13/22 18:37 Infused ONCE ONE Infusion Azithromycin 500 mg/ Sodium 250 mls @ 125 mls/hr 06/13/22 19:28 06/13/22 19:43 Chloride IV 06/13/22 21:27 125 mls/hr ONCE ONE Administration Sodium Chloride 1,000 mls @ 999 mls/hr 06/13/22 19:37 06/13/22 21:00 Ns IVCONT 06/13/22 20:37 Infused .Q1H1M ONE Infusion Albumin Human 100 mls @ 100 mls/hr 06/13/22 19:45 06/13/22 21:00 Kedbumin 25 % IV 06/13/22 21:44 100 mls/hr Q1H MATHEUS Administration Ondansetron HCl 4 mg 06/13/22 17:19 06/13/22 18:01 Ondansetron Odt 4 Mg Tab.Rapdis TRANSLINGU 06/13/22 17:20 4 mg ONCE ONE Administration Medical Decision Making Medical Decision Making MDM Narrative: -left patient's labs are pending. Patient has had 2 hypotensive blood pressures. Patient complaining of dysuria and flank pain, patient likely having a UTI. Urinalysis is still pending. -We will empirically start fluids based on ideal weight of 59 kg and also antibiotics, patient is obese. -18:49 blood pressure 93/56, blood pressure responding well with fluids. Antibiotics running. Source of hypotension remains unknown. Urinalysis pending, white blood cell count normal. Lactic acid normal. It is possible that patient accidentally may be taking a high dose of torsemide or carvedilol. Patient states that she is pretty good at taking her medications and denies a possible accidental overdose -patient received 2 L of fluid. Blood pressure initially improved to the mid 90s systolic. However, shortly after the blood pressure decreased to the 80s again, patient received 1 more L of fluids. Also, patient receive 1 dose of albumin. Blood pressure improved to the 90s but within a few minutes, dropped into the 70s. Patient is alert, awake, states that overall she does feel better. -discussed with the patient that we need to start pressors to help her blood pressure. -patient is hypotensive, white blood cell count normal lactic acid normal. I do not believe that patient's low blood pressure is secondary to pneumonia, this is likely from cardiac etiology. I discussed the patient with Dr. Mcqueen, patient being admitted to the ICU. Differential Diagnosis Differential Diagnoses: The differential diagnosis associated with the presentation includes (UTI sepsis , ACS, beta-radha overdose, diuretic overdose) Admission/Observation Consideration of admission/observation: Escalation of care including admission/observation considered Consult Healthcare Provider Management of the patient was discussed with: Diplomatic Interpreter/Translator Lab Data MDM Lab Attestation statement: I reviewed the patient's lab results. 06/13/22 18:21 06/13/22 18:21 Labs: Lab Results 06/13/22 06/13/22 06/13/22 Range/Units 18:21 18:21 18:21 WBC 4.9 (4.8-10.8) X10*3/uL RBC 5.01 (4.20-5.50) X10*6/uL Hgb 13.7 (12.0-16.0) g/dl Hct 43.4 (37.0-47.0) % MCV 86.6 (80.0-98.0) fL MCH 27.3 (27.0-33.0) pg MCHC 31.6 (31.0-35.0) g/dl RDW 14.9 (11.0-16.0) % Plt Count 159 L (160-400) X10*3/uL MPV 10.1 (9.4-12.3) fL Immature Gran % (Auto) 0.2 (0.0-0.4) % Neut % (Auto) 60.1 (45-73) % Lymph % (Auto) 29.2 (20-40) % Stokes % (Auto) 6.4 (2-11) % Eos % (Auto) 3.7 (0-4) % Baso % (Auto) 0.4 (0-2) % Lymph # (Auto) 1.4 (1.2-4.9) X10*3/uL Stokes # (Auto) 0.3 (0.1-1.2) X10*3/uL Eos # (Auto) 0.2 (0.0-0.4) X10*3/uL Baso # (Auto) 0.0 (0.0-0.2) X10*3/uL Abs Immat Gran (auto) 0.01 (0.00-0.03) X10*3/uL Absolute Neuts (auto) 2.9 (2.0-8.3) x10*3/uL Absolute Nucleated RBC 0.000 (0.0-0.012) X10*3/uL Nucleated RBC % (auto) 0.0 (0.0-0.2) /100WBC PT 12.9 (10.0-13.1) SEC INR 1.1 (0.9-1.1) Sodium 138 (135-145) mmol/L Potassium 4.7 (3.3-5.1) mmol/L Chloride 104 (96-108) mmol/L Carbon Dioxide 23 (22-29) mmol/L Anion Gap 16 (12-20) BUN 39 H (9-16) mg/dL Creatinine 2.15 H (0.5-1.4) mg/dL Estim Creat Clear Calc 30.6 Estimated GFR 23 Random Glucose 265 H (60-115) mg/dL Lactic Acid (0.5-2.0) mmol/L Calcium 8.4 (8.4-10.2) mg/dL Total Bilirubin 0.7 (0.0-1.0) mg/dL Direct Bilirubin 0.3 (0.0-0.5) mg/dL AST 136 H (5-31) U/L ALT 128 H (0-31) U/L Alkaline Phosphatase 157 H (39-117) U/L Troponin I High Sens (<3.5-17.0) ng/L B-Natriuretic Peptide (<100) pg/mL Total Protein 7.2 (6.5-8.0) g/dL Albumin 3.7 (3.5-5.0) g/dL Lipase 12 (8-78) U/L Urine Color Urine Appearance Urine pH (5.0-9.0) Ur Specific [place] (1.005-1.025) Urine Protein (Neg-Trace) mg/dL Urine Glucose (UA) (Negative) mg/dL Urine Ketones (Negative) mg/dL Urine Blood (Negative) Urine Nitrite (Negative) Ur Leukocyte Esterase (Negative) Urine Opiates Screen (Not Detect) Urine Fentanyl Screen (Not Detect) Ur Barbiturates Screen (Not Detect) Ur Phencyclidine Scrn (Not Detect) Ur Amphetamines Screen (Not Detect) U Benzodiazepines Scrn (Not Detect) Urine Cocaine Screen (Not Detect) U Marijuana (THC) Screen (Not Detect) 06/13/22 06/13/22 06/13/22 Range/Units 18:21 18:21 18:21 WBC (4.8-10.8) X10*3/uL RBC (4.20-5.50) X10*6/uL Hgb (12.0-16.0) g/dl Hct (37.0-47.0) % MCV (80.0-98.0) fL MCH (27.0-33.0) pg MCHC (31.0-35.0) g/dl RDW (11.0-16.0) % Plt Count (160-400) X10*3/uL MPV (9.4-12.3) fL Immature Gran % (Auto) (0.0-0.4) % Neut % (Auto) (45-73) % Lymph % (Auto) (20-40) % Stokes % (Auto) (2-11) % Eos % (Auto) (0-4) % Baso % (Auto) (0-2) % Lymph # (Auto) (1.2-4.9) X10*3/uL Stokes # (Auto) (0.1-1.2) X10*3/uL Eos # (Auto) (0.0-0.4) X10*3/uL Baso # (Auto) (0.0-0.2) X10*3/uL Abs Immat Gran (auto) (0.00-0.03) X10*3/uL Absolute Neuts (auto) (2.0-8.3) x10*3/uL Absolute Nucleated RBC (0.0-0.012) X10*3/uL Nucleated RBC % (auto) (0.0-0.2) /100WBC PT (10.0-13.1) SEC INR (0.9-1.1) Sodium (135-145) mmol/L Potassium (3.3-5.1) mmol/L Chloride (96-108) mmol/L Carbon Dioxide (22-29) mmol/L Anion Gap (12-20) BUN (9-16) mg/dL Creatinine (0.5-1.4) mg/dL Estim Creat Clear Calc Estimated GFR Random Glucose (60-115) mg/dL Lactic Acid 1.3 (0.5-2.0) mmol/L Calcium (8.4-10.2) mg/dL Total Bilirubin (0.0-1.0) mg/dL Direct Bilirubin (0.0-0.5) mg/dL AST (5-31) U/L ALT (0-31) U/L Alkaline Phosphatase (39-117) U/L Troponin I High Sens 13.2 (<3.5-17.0) ng/L B-Natriuretic Peptide 66 (<100) pg/mL Total Protein (6.5-8.0) g/dL Albumin (3.5-5.0) g/dL Lipase (8-78) U/L Urine Color Urine Appearance Urine pH (5.0-9.0) Ur Specific [place] (1.005-1.025) Urine Protein (Neg-Trace) mg/dL Urine Glucose (UA) (Negative) mg/dL Urine Ketones (Negative) mg/dL Urine Blood (Negative) Urine Nitrite (Negative) Ur Leukocyte Esterase (Negative) Urine Opiates Screen (Not Detect) Urine Fentanyl Screen (Not Detect) Ur Barbiturates Screen (Not Detect) Ur Phencyclidine Scrn (Not Detect) Ur Amphetamines Screen (Not Detect) U Benzodiazepines Scrn (Not Detect) Urine Cocaine Screen (Not Detect) U Marijuana (THC) Screen (Not Detect) 06/13/22 06/13/22 06/13/22 Range/Units 18:21 20:41 20:41 WBC (4.8-10.8) X10*3/uL RBC (4.20-5.50) X10*6/uL Hgb (12.0-16.0) g/dl Hct (37.0-47.0) % MCV (80.0-98.0) fL MCH (27.0-33.0) pg MCHC (31.0-35.0) g/dl RDW (11.0-16.0) % Plt Count (160-400) X10*3/uL MPV (9.4-12.3) fL Immature Gran % (Auto) (0.0-0.4) % Neut % (Auto) (45-73) % Lymph % (Auto) (20-40) % Stokes % (Auto) (2-11) % Eos % (Auto) (0-4) % Baso % (Auto) (0-2) % Lymph # (Auto) (1.2-4.9) X10*3/uL Stokes # (Auto) (0.1-1.2) X10*3/uL Eos # (Auto) (0.0-0.4) X10*3/uL Baso # (Auto) (0.0-0.2) X10*3/uL Abs Immat Gran (auto) (0.00-0.03) X10*3/uL Absolute Neuts (auto) (2.0-8.3) x10*3/uL Absolute Nucleated RBC (0.0-0.012) X10*3/uL Nucleated RBC % (auto) (0.0-0.2) /100WBC PT (10.0-13.1) SEC INR (0.9-1.1) Sodium (135-145) mmol/L Potassium (3.3-5.1) mmol/L Chloride (96-108) mmol/L Carbon Dioxide (22-29) mmol/L Anion Gap (12-20) BUN (9-16) mg/dL Creatinine (0.5-1.4) mg/dL Estim Creat Clear Calc Estimated GFR Random Glucose (60-115) mg/dL Lactic Acid (0.5-2.0) mmol/L Calcium (8.4-10.2) mg/dL Total Bilirubin (0.0-1.0) mg/dL Direct Bilirubin (0.0-0.5) mg/dL AST (5-31) U/L ALT (0-31) U/L Alkaline Phosphatase (39-117) U/L Troponin I High Sens (<3.5-17.0) ng/L B-Natriuretic Peptide 61 (<100) pg/mL Total Protein (6.5-8.0) g/dL Albumin (3.5-5.0) g/dL Lipase (8-78) U/L Urine Color Yellow Urine Appearance Clear Urine pH 6.0 (5.0-9.0) Ur Specific [place] 1.010 (1.005-1.025) Urine Protein Negative (Neg-Trace) mg/dL Urine Glucose (UA) Negative (Negative) mg/dL Urine Ketones Negative (Negative) mg/dL Urine Blood Negative (Negative) Urine Nitrite Negative (Negative) Ur Leukocyte Esterase Negative (Negative) Urine Opiates Screen Not Detected (Not Detect) Urine Fentanyl Screen Not Detected (Not Detect) Ur Barbiturates Screen Not Detected (Not Detect) Ur Phencyclidine Scrn Not Detected (Not Detect) Ur Amphetamines Screen Not Detected (Not Detect) U Benzodiazepines Scrn Not Detected (Not Detect) Urine Cocaine Screen Not Detected (Not Detect) U Marijuana (THC) Screen Not Detected (Not Detect) Radiology Impression Discussion of test interpretation with radiology: I have reviewed the radiologist's reading. Radiologist Impression: FINDINGS: LUNG BASES: Patchy and partially consolidated airspace opacities in the right lung base concerning for pneumonia. These are new since the CT exam of 08/24/2021. No dependent pleural effusion. Heart size enlarged. Pacemaker leads in right atrium and right ventricle.? LIVER, GALLBLADDER, AND BILIARY TREE: Lobular contour of liver surface suggesting cirrhosis. No focal liver lesion or intrahepatic bile duct dilatation. Right lobe of liver measures 16 cm superior inferior. ?Status post cholecystectomy. Chronic dilatation of the extrahepatic CBD unchanged since prior studies. PANCREAS: Unremarkable.? SPLEEN: Unremarkable.? ADRENAL GLANDS: Unremarkable.? KIDNEYS AND URETERS: The kidneys are normal in size, shape, and attenuation. No hydronephrosis, hydroureter, or calculi seen. No perinephric stranding. Cyst in the upper pole right kidney and in the midpole of left kidney. No follow-up imaging is recommended for simple renal cyst. BLADDER: Unremarkable.? GASTROINTESTINAL TRACT: There are a few scattered diverticula of the colon. There is no diverticulitis. There is no bowel wall thickening /edema. There is no bowel obstruction. There is a moderate volume of stool in the colon. The appendix is nonvisualized . There is no inflammation the mesentery The small bowel loops are unremarkable. The stomach is normal. There is no hiatal hernia. MESENTERY: Surgical clips in the low pelvis. No inflammation. No free air or free fluid. ABDOMINAL WALL: No significant hernia is appreciated.? LYMPH NODES: Normal. VASCULAR: Small volume of vascular calcifications of the abdominal aorta. There is no aneurysm. PELVIC VISCERA: Uterus is absent. No adnexal abnormality.? OSSEOUS STRUCTURES: Unremarkable.? CT/CT abdomen pelvis wo IV con IMPRESSION: 1.? No acute abnormality CT scan abdomen pelvis. 2.? Patchy and partially consolidated airspace opacities in the right lung base concerning for pneumonia. 3.? Cardiomegaly. Pacemaker leads in heart. 4.? Status post cholecystectomy. 5.? Diverticulosis of colon. No acute abnormality of the bowel. Critical Care Time Critical Care Time Critical Care Time: Yes Total Critical Care Time: 120 Attestation: I have personally provided critical care time. Time includes review of lab data, radiology results, discussion with consultants, and monitoring for potential decompensation. Intervention performed as documented. Discharge Plan Discharge Clinical Impression: Acute hypotension, CHICHI (acute kidney injury), Chronic diarrhea Patient Disposition: Admitted As Inpatient Prescriptions: No Action insulin glargine [Lantus U-100 Insulin] 100 unit/mL Solution 30 unit SUBCUT QPM nitroglycerin 0.3 mg Tablet, Sublingual 0.3 mg SUBLINGUAL Q5M PRN (Reason: Chest Pain) Rx Instructions: do not exceed 3 doses per episode loperamide 2 mg Tablet 2 mg PO Q3H PRN (Reason: Diarrhea) Rx Instructions: administer after each loose stool until symptoms controlled; do not exceed 8 mg per 24 hrs carvedilol 3.125 mg Tablet 3.125 mg PO BID Rx Instructions: must administer with a meal/food zolpidem 5 mg Tablet 10 mg PO BEDTIME Humalog U-100 Insulin 100 unit/mL Cartridge 10 unit SUBCUT TID melatonin 10 mg Tablet 20 mg PO BEDTIME Entresto 97-103 mg Tablet 1 tab PO BID albuterol sulfate 2.5 mg /3 mL (0.083 %) Solution For Nebulization 2.5 mg INHALATION Q4H PRN (Reason: Shortness Of Breath Or Wheezing) alprazolam 0.5 mg Tablet 0.5 mg PO TID
--- NOTE | 2022-06-13 17:17 | ECG_ITS ---
Test Reason : SOB Blood Pressure : / mmHG Vent. Rate : 088 BPM Atrial Rate : 088 BPM P-R Int : 184 ms QRS Dur : 112 ms QT Int : 402 ms P-R-T Axes : 044 -32 047 degrees QTc Int : 486 ms Sinus rhythm with frequent Premature ventricular complexes Left axis deviation Moderate voltage criteria for LVH, may be normal variant ( R in aVL , Guero product ) Cannot rule out Anterior infarct , age undetermined Abnormal ECG When compared with ECG of 24-AUG-2021 23:04, Premature ventricular complexes are now Present Referred By: Lori Vasquez Electronically Signed By:REEMA SUAZO
[2022-06-13] MEDS: Ondansetron ODT 4 MG TAB.RAPDIS TRANSLINGU (18:01)
[2022-06-13] MEDS: 0.9 % Sodium Chloride 2,000 ML 999 ML IVCONT (18:22)
[2022-06-13 18:29] LABS: MANUAL DIFF FLAG NO
[2022-06-13] MEDS: cefTRIAXone sodium 1 GM in 0.9 % Sodium Chloride 50 ML IV (18:36)
[2022-06-13 18:40] LABS: Basophils Percent Auto 0.4 % (0-2); Eosinophils Absolute Auto 0.2 X10*3/uL (0.0-0.4); Eosinophils Percent Auto 3.7 % (0-4); Hematocrit 43.4 % (37.0-47.0); Hemoglobin 13.7 g/dl (12.0-16.0); Imm Gran Abs Auto 0.01 X10*3/uL (0.00-0.03); Imm Gran Pct Auto 0.2 % (0.0-0.4); Lymphocytes Absolute Auto 1.4 X10*3/uL (1.2-4.9); Lymphocytes Percent Auto 29.2 % (20-40); Mean Corpuscular HGB Conc 31.6 g/dl (31.0-35.0); Mean Corpuscular Hemoglobin 27.3 pg (27.0-33.0); Mean Corpuscular Volume 86.6 fL (80.0-98.0); Mean Platelet Volume 10.1 fL (9.4-12.3); Monocytes Absolute Auto 0.3 X10*3/uL (0.1-1.2); Monocytes Percent Auto 6.4 % (2-11); Neutrophils Absolute Auto 2.9 x10*3/uL (2.0-8.3); Neutrophils Percent Auto 60.1 % (45-73); Platelet Count 159 X10*3/uL (160-400); Red Blood Count 5.01 X10*6/uL (4.20-5.50); Red Cell Distribution Width 14.9 % (11.0-16.0); White Blood Count 4.9 X10*3/uL (4.8-10.8)
[2022-06-13 18:41] LABS: Lactic Acid 1.3 mmol/L (0.5-2.0)
[2022-06-13 18:48] LABS: Alanine Aminotransferase 128 U/L (0-31); Albumin Level 3.7 g/dL (3.5-5.0); Alkaline Phosphatase 157 U/L (39-117); Anion Gap 16 (12-20); Aspartate Amino Transferase 136 U/L (5-31); Bilirubin Direct 0.3 mg/dL (0.0-0.5); Bilirubin Total 0.7 mg/dL (0.0-1.0); Blood Urea Nitrogen 39 mg/dL (9-16); Calcium 8.4 mg/dL (8.4-10.2); Carbon Dioxide 23 mmol/L (22-29); Chloride 104 mmol/L (96-108); Creatinine Clr Calc Pharmacy 30.6; Estimated Glomerular Filt Rate 23; Glucose Random 265 mg/dL (60-115); Lipase 12 U/L (8-78); Potassium 4.7 mmol/L (3.3-5.1); Sodium 138 mmol/L (135-145); Total Protein 7.2 g/dL (6.5-8.0)
[2022-06-13 18:52] LABS: B Type Natriuretic Peptide 61 pg/mL (<100); B Type Natriuretic Peptide 66 pg/mL (<100)
[2022-06-13 18:54] LABS: Troponin-I High Sensitivity 13.2 ng/L (<3.5-17.0)
[2022-06-13 19:32] LABS: INTERNATIONAL NORM RATIO 1.1 (0.9-1.1); Prothrombin Time 12.9 SEC (10.0-13.1)
--- NOTE | 2022-06-13 19:34 | PC.NURSE ---
I resumed care of the pt at 1900. Pt resting quietly in bed, requesting to go to the bathroom. Pt was able to ambulate with a walker with no problems. Pt is a sepsis workup, she is on her second liter of fluids at this time. Cultures and lactic have been drawn. Pt is A&Ox4, GCS 15, with warm, dry skin. Pt is on 3 LPM O2 at baseline during the day.
[2022-06-13] MEDS: Azithromycin 500 MG in 0.9 % Sodium Chloride 250 ML 125 MG IV (19:43)
[2022-06-13] MEDS: 0.9 % Sodium Chloride 1,000 ML 999 ML IVCONT (20:00)
--- NOTE | 2022-06-13 20:05 | PC.NURSE ---
Pt BP noted to be low, a third liter of fluids have been ordered and hung. MD aware of low BP.
[2022-06-13 20:52] LABS: Appearance Urine Clear; Color Urine Yellow; Glucose Urine UA Negative (Negative); Leukocyte Esterase Urine Negative (Negative); Nitrite Urine Negative (Negative); Urine Blood Negative (Negative); Urine Ketones Negative (Negative); Urine Protein Negative (Neg-Trace)
[2022-06-13] MEDS: Albumin Human 25 % 100 ML IV ×2 (21:00→22:17)
--- NOTE | 2022-06-13 21:02 | PC.NURSE ---
Pt port accessed in the right upper chest. Line is patent and secured.
--- NOTE | 2022-06-13 21:03 | PHA.MEDREC ---
Pharmacy Consult ? Medication Reconciliation Patient confirm medication and stated she was taking carvedilol, melatonin , humalog and lantus . Pharmacy has completed the medication reconciliation.
[2022-06-13 21:04] LABS: Amphetamine Screen Urine Not Detected (Not Detect); Barbiturates, Urine Not Detected (Not Detect); Benzodiazepines Screen Urine Not Detected (Not Detect); Cannabinoid Screen Urine Not Detected (Not Detect); Cocaine Screen Urine Not Detected (Not Detect); Fentanyl, urine Not Detected (Not Detect); Opiate Screen Urine Not Detected (Not Detect); Phencyclidine Screen Urine Not Detected (Not Detect)
--- NOTE | 2022-06-13 22:10 | MHC.EDTECH ---
Patient placed on purewick, repeat EKG done and awaiting transfer to ICU
[2022-06-13] MEDS: Norepinephrine Bitartrate/D5W 8 MG/250 ML PLAST..BAG 9.35 MG IV (22:15)
[2022-06-13] MEDS: Heparin Sodium,Porcine 5,000 UNIT/ML VIAL 5000 UNIT SUBCUT (22:41)
--- NOTE | 2022-06-13 23:55 | P.HPCC_ITS ---
History of Present Illness Date of Service: 06/13/22 Attending physician on admission: Alexis Mcqueen Chief Complaint: Weakness Ms. Ricardo is a very pleasant 66-year-old female with a past medical history of? CAD with PCI in 2004, CHF, ICD for cardiomyopathy, ventricular tachycardia, CKD, COPD, GEORGES on CPAP at , home oxygen 2-3 L, diabetes, diverticulitis, hydronephrosis who presented to the emergency room this evening via ambulance from [facility] with a complaint of bilateral upper back pain, generalized weakness and malaise, nausea, dysuria, and suprapubic discomfort worse with urination.? She was recently admitted to [facility] on 05/21/2022 to 05/24/2022 for acute CHF and COPD exacerbation.? She did have an echocardiogram? while admitted that showed severely reduced left ventricular systolic function.? Left ventricular ejection fraction 20%.? Severe global hypokinesis.? Abnormal septal motion.? Likely grade 1 diastolic dysfunction.? Normal right ventricular size and function.? Normal left atrial size.? Right atrial pressure estimated to be about 8 mg of mercury.? No hemodynamically significant valve disease. She is followed by [facility]. She underwent a cardiac cath with CardioMEMS implantation in the left pulmonary artery on 05/29/2022 at [facility].?? On 06/02/2022, she experienced pressure and burning in her upper abdomen radiating up through her chest and into her neck that she said felt like when she had had a heart attack in the past. She did not seek medical treatment because her symptoms resolved with a dose of Mylanta and 1 nitro tablet. She has been experiencing? an aching and stiffness to her upper shoulders and neck that she? perceives as muscular and attributes to the pillow used in conjunction with the CardioMEMS. She also notes shortness of breath, weakness and sees ?black floaters? with activity. The patient reports recent increases to both her Entresto and carvedilol. She stated that in the past she was unable to tolerate the higher dose of Entresto. ?Additionally, she has been taking her torsemide as directed over the last few weeks but had only been taking it sporadically before that. She did note that all of the symptoms she is having began shortly after the dose increases. On arrival to the emergency room, the patient's blood pressure was 85/42, heart rate 89, temp 98.3, urine negative for leukocytes and nitrite. Laboratory data significant for WBC 4.9,? BUN 39, creatinine 2.15 (baseline 13/ 0.89), lactic acid 1.3, AST 136,? ALT 128, alk-phos 157, troponin 13.2,? BNP 61. Urine negative for UTI. Imaging: CT abdomen pelvis wo IV con: No acute abnormality CT scan abdomen pelvis. * Patchy and partially consolidated airspace opacities in the right lung base concerning for pneumonia. * Cardiomegaly. Pacemaker leads in heart. * Status post cholecystectomy. * Diverticulosis of colon. No acute abnormality of the bowel. * ED course:? the patient received a total of 3 L of fluid,? albumin 100 mL,? and was empirically covered with ceftriaxone and azithromycin.? Blood pressure initially improved while in the emergency room but then dropped back down into the 70s.? She was started on Levophed? and is admitted to the ICU for management of hypotension and acute kidney injury. Review of Systems Constitutional: Constitutional: Reports as per HPI Eyes: Eyes: Reports floaters Cardiovascular: Cardiovascular: Reports dyspnea on exertion Respiratory: Respiratory: Reports dyspnea on exertion Gastrointestinal: Gastrointestinal: Reports diarrhea Musculoskeletal: Musculoskeletal: Reports no additional musculoskeletal complaints Neurologic: Comments: Residual pain from shingles infection on right temporal scalp PMFSH Past Medical History Medical History (Updated 06/13/22 @ 22:20 by Lori Vasquez MD) CHF (congestive heart failure) Chronic kidney disease COPD (chronic obstructive pulmonary disease) Diabetes Diverticulitis Hydronephrosis Functional capacity: uses cane/walker (rolling walker) Social History Social History Household Members: None Housing: House Do you presently have visiting nurse or other home services: Yes Alcohol intake: never Patient Tobacco Use Status: Never used Tobacco Smoked in Last 30 Days: No Use of substances other than those prescribed or required for medical reasons: No Have you been hit, kicked, punched, or otherwise hurt by someone within the past year? If so, by whom?: No Do you feel safe in your current relationship?: No Current Relationship Is there a partner from a previous relationship who is making you feel unsafe now?: No Advance Directives: No Advance Directives Information Provided: No Do you have thoughts of harming others: None Do you have a plan to hurt others: No Plan Recently lost weight without trying: No How much weight loss: Not applicable Eating poorly because of decreased appetite: Yes Nutrition screen score: 1 Nutrition Risks: No Nutritional Risk Patient : No : No Poor oral hygiene: No Meds Allergies Allergy/AdvReac Type Severity Reaction Status Date / Time morphine [MORPHINE] Allergy Mild HIVES AT Unverified 11/11/19 16:15 INJECTION SITE aspirin [Aspirin] Allergy Unknown HIVES, Unverified 11/11/19 16:15 itching, hives benazepril Allergy Unknown Verified 09/14/14 00:00 codeine [Codeine] Allergy Unknown HIVES, Unverified 11/11/19 16:15 itching, hives dexamethasone [From DECADRON] Allergy Unknown HIVES ITCH Unverified 11/11/19 16:15 ibuprofen [From Motrin] Allergy Unknown HIVES, Unverified 11/11/19 16:15 itching Iodinated Contrast Media Allergy Unknown ANAPHYLAXIS Unverified 11/11/19 16:15 [IV Dye, Iodine Containing] levofloxacin [From LEVAQUIN] Allergy Unknown HIVES Unverified 11/11/19 16:15 NSAIDS (Non-Steroidal Allergy Unknown HIVES Unverified 11/11/19 16:15 Anti-Inflamma [Nsaids] povidone-iodine Allergy Unknown HIVES ITCH Unverified 11/11/19 16:15 [From BETADINE] soap [From BETADINE] Allergy Unknown HIVES ITCH Unverified 11/11/19 16:15 tramadol Allergy Unknown itching, Verified 09/14/14 00:00 hives decadron Allergy Unknown hives Uncoded 09/14/14 00:00 From Compazine Allergy Unknown HIVES Uncoded 11/11/19 16:15 From Lotensin Allergy Unknown HIVES Uncoded 11/11/19 16:15 From Toradol Allergy Unknown HIVES Uncoded 11/11/19 16:15 From Ultram Allergy Unknown HIVES Uncoded 11/11/19 16:15 IVP dye Allergy Unknown itching, Uncoded 09/14/14 00:00 hives Prochlorperazine Maleate Allergy Unknown oral Uncoded 09/14/14 00:00 itching Active Medications: Current Medications Heparin Sodium (Porcine) (Heparin Sodium,Porcine 5,000 Unit/Ml Vial) 5,000 unit SUBCUT Q8H [facility] Last Admin: 06/13/22 22:41 Dose: 5,000 unit Norepinephrine Bitartrate (Levophed) 8 mg in 250 mls @ 0 mls/hr IV .Q0M [facility]; Protocol Last Titration: 06/13/22 22:30 Dose: 0.07 mcg/kg/min, 13.09 mls/hr Pharmacy Consult (Consult Rx Perform Med Rec) 1 each MISCELLANE ONCE PRN PRN Reason: Consult order Home Medications Medication Instructions Recorded Confirmed Last Taken Type albuterol sulfate 2.5 mg/3 mL 2.5 mg inhalation Q4H PRN 06/13/22 06/13/22 Unknown History (0.083 %) solution for nebulization Shortness Of Breath Or Wheezing alprazolam 0.5 mg tablet 0.5 mg PO TID 06/13/22 06/13/22 Unknown History carvedilol 3.125 mg tablet 3.125 mg PO BID 06/13/22 06/13/22 Unknown History insulin glargine 100 unit/mL 30 unit subcut QPM 06/13/22 06/13/22 Unknown History subcutaneous solution (Lantus U-100 Insulin) insulin lispro 100 unit/mL 10 unit subcut TID 06/13/22 06/13/22 Unknown History subcutaneous cartridge (Humalog U-100 Insulin) loperamide 2 mg tablet 2 mg PO Q3H PRN Diarrhea 06/13/22 06/13/22 Unknown History melatonin 10 mg tablet 20 mg PO BEDTIME 06/13/22 06/13/22 Unknown History nitroglycerin 0.3 mg sublingual 0.3 mg sublingual Q5M PRN Chest 06/13/22 06/13/22 Unknown History tablet Pain sacubitril 97 mg-valsartan 103 mg 1 tab PO BID 06/13/22 06/13/22 Unknown History tablet (Entresto) zolpidem 5 mg tablet 10 mg PO BEDTIME 06/13/22 06/13/22 Unknown History Physical Exam Vital Signs: Vital Signs: Last Vital Signs Temp 98.3 F 06/13/22 17:30 Pulse 96 06/13/22 22:30 Resp 17 04/20/23 21:46 BP 102/57 L 04/20/23 22:30 Pulse Ox 100 06/13/22 20:13 O2 Del Method Room Air, Nasal C annula 06/13/22 20:13 O2 Flow Rate 2 06/13/22 20:13 Oxygen Flow Rate 2 06/13/22 17:30 BMI result Body Mass Index 35.4 Const: General: cooperative, comfortable and no acute distress Nutritional Appearance: obese Orientation/consciousness: patient oriented x3 (answering a ppropriately.) Limitations: ambulation with walker HEENT: Head: Yes normocephalic and Yes atraumatic General nose exam: Normal external nose present (Nares patent, septum midline, sinuses nontender bilaterally.) Mouth: Normal oral and palatal mucosa present (No thrush, tongue in midline, mucosa moist.) Teeth and gingiva: dentures Throat: Yes other (No erythema, no exudate.) Neck: Neck: Yes full ROM, Yes supple (no thyromegaly, trachea midline.) and Yes no JVD Carotids: normal carotid upstroke and no bruits Resp: Auscultation: clear to auscultation bilaterally (normal work of breathing, no accessory muscle use) Cardio: Jugular venous distension: no JVD Rate: regular rate Rhythm: regular rhythm Heart sounds: no gallops, no murmurs and no rubs Peripheral pulses: Peripheral pulses 2+ throughout GI: Palpation (GI): Soft to palpation (nondistended.) and Tenderness to palpation present (GI) in the RLQ Auscultation: normal bowel sounds : General: Yes CVA tenderness on the right Back/Spine/Pelvis: Back: CVA tenderness Skin: Other: Right chest portacath General skin exam: no rashes or lesions noted Wounds: no wounds Neuro: General: patient oriented x3 (answering appropriately.) Extrem: General: Yes full ROM, Yes capillary refill normal and Yes no clubbing, cyanosis or edema Psych: Appearance: well kempt Mental Status: mental status grossly normal Speech and movement: Normal speech and movement present Affect: normal affect Attitude: cooperative Results Labs 06/13/22 18:21 06/13/22 18:21 Labs: Laboratory Results - last 24 hr 06/13/22 06/13/22 06/13/22 18:21 18:21 18:21 MCV 86.6 MCH 27.3 MCHC 31.6 RDW 14.9 Plt Count 159 L MPV 10.1 Immature Gran % (Auto) 0.2 Neut % (Auto) 60.1 Lymph % (Auto) 29.2 Ross % (Auto) 6.4 Eos % (Auto) 3.7 Baso % (Auto) 0.4 Lymph # (Auto) 1.4 Ross # (Auto) 0.3 Eos # (Auto) 0.2 Baso # (Auto) 0.0 Abs Immat Gran (auto) 0.01 Absolute Neuts (auto) 2.9 Absolute Nucleated RBC 0.000 Nucleated RBC % (auto) 0.0 PT 12.9 INR 1.1 Anion Gap 16 Estim Creat Clear Calc 30.6 Estimated GFR 23 Random Glucose 265 H Lactic Acid Calcium 8.4 Total Bilirubin 0.7 Direct Bilirubin 0.3 AST 136 H ALT 128 H Alkaline Phosphatase 157 H Troponin I High Sens B-Natriuretic Peptide Total Protein 7.2 Albumin 3.7 Lipase 12 Urine Color Urine Appearance Urine pH Ur Specific Petty Urine Protein Urine Glucose (UA) Urine Ketones Urine Blood Urine Nitrite Ur Leukocyte Esterase Urine Opiates Screen Urine Fentanyl Screen Ur Barbiturates Screen Ur Phencyclidine Scrn Ur Amphetamines Screen U Benzodiazepines Scrn Urine Cocaine Screen U Marijuana (THC) Screen 06/13/22 06/13/22 06/13/22 18:21 18:21 18:21 MCV MCH MCHC RDW Plt Count MPV Immature Gran % (Auto) Neut % (Auto) Lymph % (Auto) Ross % (Auto) Eos % (Auto) Baso % (Auto) Lymph # (Auto) Ross # (Auto) Eos # (Auto) Baso # (Auto) Abs Immat Gran (auto) Absolute Neuts (auto) Absolute Nucleated RBC Nucleated RBC % (auto) PT INR Anion Gap Estim Creat Clear Calc Estimated GFR Random Glucose Lactic Acid 1.3 Calcium Total Bilirubin Direct Bilirubin AST ALT Alkaline Phosphatase Troponin I High Sens 13.2 B-Natriuretic Peptide 66 Total Protein Albumin Lipase Urine Color Urine Appearance Urine pH Ur Specific Petty Urine Protein Urine Glucose (UA) Urine Ketones Urine Blood Urine Nitrite Ur Leukocyte Esterase Urine Opiates Screen Urine Fentanyl Screen Ur Barbiturates Screen Ur Phencyclidine Scrn Ur Amphetamines Screen U Benzodiazepines Scrn Urine Cocaine Screen U Marijuana (THC) Screen 04/20/23 04/20/23 04/20/23 18:21 20:41 20:41 MCV MCH MCHC RDW Plt Count MPV Immature Gran % (Auto) Neut % (Auto) Lymph % (Auto) Ross % (Auto) Eos % (Auto) Baso % (Auto) Lymph # (Auto) Ross # (Auto) Eos # (Auto) Baso # (Auto) Abs Immat Gran (auto) Absolute Neuts (auto) Absolute Nucleated RBC Nucleated RBC % (auto) PT INR Anion Gap Estim Creat Clear Calc Estimated GFR Random Glucose Lactic Acid Calcium Total Bilirubin Direct Bilirubin AST ALT Alkaline Phosphatase Troponin I High Sens B-Natriuretic Peptide 61 Total Protein Albumin Lipase Urine Color Yellow Urine Appearance Clear Urine pH 6.0 Ur Specific Petty 1.010 Urine Protein Negative Urine Glucose (UA) Negative Urine Ketones Negative Urine Blood Negative Urine Nitrite Negative Ur Leukocyte Esterase Negative Urine Opiates Screen Not Detected Urine Fentanyl Screen Not Detected Ur Barbiturates Screen Not Detected Ur Phencyclidine Scrn Not Detected Ur Amphetamines Screen Not Detected U Benzodiazepines Scrn Not Detected Urine Cocaine Screen Not Detected U Marijuana (THC) Screen Not Detected Imaging Radiologist's Impressions: Impressions Abdomen/Pelvis CT 06/13/22 17:45 IMPRESSION: 1. No acute abnormality CT scan abdomen pelvis. 2. Patchy and partially consolidated airspace opacities in the right lung base concerning for pneumonia. 3. Cardiomegaly. Pacemaker leads in heart. 4. Status post cholecystectomy. 5. Diverticulosis of colon. No acute abnormality of the bowel. Fleischner guidelines were followed. Assessment and Plan (1) Acute hypotension: Status: Acute (2) CHICHI (acute kidney injury): Status: Acute Plan The patient is a 66-year-old female a past medical history of? CAD with a PCI in 2004, CHF,? ICD for cardiomyopathy, ventricular tachycardia, CKD, COPD, GEORGES on CPAP at , home oxygen 2-3 L, diabetes, diverticulitis, hydronephrosis admitted to the ICU for management of hypotension and acute kidney injury. Neuro:? No acute issues. Cardiac:? Hypotension, CHF. Levophed for pressure support.? Hold home meds. Echo in a.m. Appreciate input from Cardiology.. Pulmonary:? No acute issues. Renal:? CHICHI. 3L fluid given in ER. Monitor renal indices and urine output. Endo:? No acute issues.?? GI:? No acute issues. ID: The? patient received? a total of 3 L of fluid, ceftriaxone, azithromycin.? Urinalysis negative for UTI.? Opacities in the right lung base. Given the normal white blood cell count and lactic acid level, hypotension is likely due to cardiac etiology rather than pneumonia. Heme/Onc:? No acute issues. Psych:? No acute issues. Prophylaxis:? Heparin Diet:? NPO Time Spent With Patient Time: Total time managing care of this patient today ____ minutes.
[2022-06-14] VITALS (30 sets, daily range): BP systolic 86–122; BP diastolic 47–74; PULSE 78–104; RESP 15–21; TEMP 36.3–36.9; O2SAT 92–100; BMI 34.8
[2022-06-14 01:13] LABS: Glucose, Whole Blood 194 mg/dL (60-115)
[2022-06-14] MEDS: Melatonin 3 MG TABLET 6 MG PO (01:27)
[2022-06-14] MEDS: ALPRAZolam 0.5 MG TABLET PO ×2 (01:27→20:19)
[2022-06-14] MEDS: Acetaminophen 325 MG TABLET 650 MG PO ×4 (01:27→21:03)
[2022-06-14] MEDS: Insulin Lispro 100 UNIT/ML 3 ML VIAL SUBCUT ×4 (01:28→20:20)
[2022-06-14] MEDS: Ondansetron ODT 4 MG TAB.RAPDIS TRANSLINGU (01:32)
[2022-06-14 05:38] LABS: Glucose, Whole Blood 138 mg/dL (60-115)
[2022-06-14 05:39] LABS: MANUAL DIFF FLAG NO
[2022-06-14 05:42] LABS: Basophils Percent Auto 0.4 % (0-2); Eosinophils Absolute Auto 0.3 X10*3/uL (0.0-0.4); Eosinophils Percent Auto 5.7 % (0-4); Hematocrit 37.4 % (37.0-47.0); Hemoglobin 11.6 g/dl (12.0-16.0); Imm Gran Abs Auto 0.01 X10*3/uL (0.00-0.03); Imm Gran Pct Auto 0.2 % (0.0-0.4); Lymphocytes Absolute Auto 2.1 X10*3/uL (1.2-4.9); Lymphocytes Percent Auto 37.1 % (20-40); Mean Corpuscular Hemoglobin 27.1 pg (27.0-33.0); Mean Corpuscular Volume 87.4 fL (80.0-98.0); Monocytes Absolute Auto 0.5 X10*3/uL (0.1-1.2); Monocytes Percent Auto 8.5 % (2-11); Neutrophils Absolute Auto 2.7 x10*3/uL (2.0-8.3); Neutrophils Percent Auto 48.1 % (45-73); Platelet Count 120 X10*3/uL (160-400); Red Blood Count 4.28 X10*6/uL (4.20-5.50); White Blood Count 5.6 X10*3/uL (4.8-10.8)
[2022-06-14] MEDS: Heparin Sodium,Porcine 5,000 UNIT/ML VIAL 5000 UNIT SUBCUT ×3 (05:52→22:07)
[2022-06-14 05:59] LABS: Albumin Level 3.7 g/dL (3.5-5.0); Anion Gap 14 (12-20); Blood Urea Nitrogen 25 mg/dL (9-16); Calcium 7.6 mg/dL (8.4-10.2); Carbon Dioxide 20 mmol/L (22-29); Chloride 113 mmol/L (96-108); Creatinine Clr Calc Pharmacy 60.4; Estimated Glomerular Filt Rate 51; Glucose Random 144 mg/dL (60-115); Magnesium 1.3 mg/dL (1.6-2.6); Sodium 143 mmol/L (135-145)
[2022-06-14] MEDS: Magnesium Sulfate/H2O 2 GM/50 ML PIGGYBACK IV (06:10)
[2022-06-14] MEDS: Albuterol/Iprat 2.5/0.5MG 3 ML AMPUL.NEB INHALE ×4 (09:04→20:11)
--- NOTE | 2022-06-14 09:50 | P.CONCA_ITS ---
History of Present Illness History of Present Illness Date of Service: 06/14/22 Chief complaint: Hypotension Narrative: This is a cardiology consultation regarding hypotension and renal failure with strong cardiac history. Outpatient documentation was reviewed in detail. Patient goes to [facility]. Last seen just about a week ago. Has a history of obesity, nonischemic cardiomyopathy status post ICD placement, chronic systolic and diastolic congestive heart failure, COPD, CAD status post PCI to LAD in 2003, diabetes, hypertension, [place]. It seems that she was seen re cently after a long time. At that time, her Entresto was increased to the maximum does. It seems that she has had multiple hospitalizations for congestive heart failure. At that time, it was decided that she can undergo CardioMEMS implantation which was done few days ago. Per office note, she had been complaining of some left-sided chest pain with radiation to the neck and jaw. Some shortness of breath as well. This admission, patient has been found to be hypotensive and also to be in renal failure. She has been from fluids. She also received pressors. She is still on a small dose of pressors. According to her, she does get symptoms of a burning type feeling in her chest. Difficult to say what it is. Sounds like angina but it seems that she had a cardiac catheterization in 2020 that really did not show any significant findings. Not clear if all her findings are related to dehydration/hypertension/renal failure. Per patient, her dose of Entresto as well as carvedilol very increased recently. Entresto per office note was increased to 97/103 mm Hg twice a day. According to patient Coreg dose was increased from 3.125 b.i.d. to twice that dose. She also remains on torsemide 20 mg b.i.d. per patient's own history but the office note rather states furosemide 40 mg once a day. Review of Systems Review of Systems: Yes all other systems are reviewed and are negative Constitutional: Constitutional: Reports as per HPI and Reports no additional constitutional complaints Eyes: Eyes: Reports as per HPI and Denies no additional eye complaints ENT: Denies system reviewed and no additional complaints, except as documented and Reports as per HPI Cardiovascular: Cardiovascular: Reports as per HPI, Reports no additional cardiovascular complaints, Denies acrocyanosis, Denies cool extremities, Reports chest pain, Denies leg edema, Denies lightheadedness, Denies palpitations and Reports dyspnea Respiratory: Respiratory: Reports as per HPI, Denies no additional respiratory complaints and Reports dyspnea Gastrointestinal: Gastrointestinal: Reports as per HPI and Denies no additional gastrointestinal complaints Genitourinary: Genitourinary: Reports as per HPI Musculoskeletal: Musculoskeletal: Reports no additional musculoskeletal complaints and Reports as per HPI Integumentary/Breasts: Skin/Breast: Reports system reviewed and no additional complaints, except as docu Neurologic: Reports system reviewed and no additional complaints, except as documented and Reports as per HPI Psychiatric: Psychiatric: Reports no additional psychiatric complaints and Reports as per HPI Endocrine: Endocrine: Reports no additional endocrine complaints, Reports as per HPI and Denies palpitations Hematologic/Lymphatic: Hematologic/Lymphatic: Reports no additional hematologic/lymphatic complaints and Reports as per HPI Allergic/Immunologic: Allergic/Immunologic: Reports no additional allergic/imm unologic complaints and Reports as per HPI [facility] Past Medical History Medical History (Updated 06/14/22 @ 09:57 by Napoleon Becker MD) CHF (congestive heart failure) Chronic kidney disease COPD (chronic obstructive pulmonary disease) Diabetes Diverticulitis Hydronephrosis NICM (nonischemic cardiomyopathy) Presence of CardioMEMS HF system Functional capacity: uses cane/walker (rolling walker) Family History Family History (Updated 06/14/22 @ 09:54 by Napoleon Becker MD) Mother CAD (coronary artery disease) Social History Social History Household Members: None Housing: House Do you presently have visiting nurse or other home services: Yes Alcohol intake: never Patient Tobacco Use Status: Never used Tobacco Smoked in Last 30 Days: No Use of substances other than those prescribed or required for medical reasons: No Have you been hit, kicked, punched, or otherwise hurt by someone within the past year? If so, by whom?: No Do you feel safe in your current relationship?: No Current Relationship Is there a partner from a previous relationship who is making you feel unsafe now?: No Advance Directives: No Advance Directives Information Provided: No Do you have thoughts of harming others: None Do you have a plan to hurt others: No Plan Recently lost weight without trying: No How much weight loss: Not applicable Eating poorly because of decreased appetite: Yes Nutrition screen score: 1 Nutrition Risks: No Nutritional Risk Patient : No : No Poor oral hygiene: No Meds Allergies Allergy/AdvReac Type Severity Reaction Status Date / Time morphine [MORPHINE] Allergy Mild HIVES AT Unverified 11/11/19 16:15 INJECTION SITE aspirin [Aspirin] Allergy Unknown HIVES, Unverified 11/11/19 16:15 itching, hives benazepril Allergy Unknown Verified 09/14/14 00:00 codeine [Codeine] Allergy Unknown HIVES, Unverified 11/11/19 16:15 itching, hives dexamethasone [From DECADRON] Allergy Unknown HIVES ITCH Unverified 11/11/19 16:15 ibuprofen [From Motrin] Allergy Unknown HIVES, Unverified 11/11/19 16:15 itching Iodinated Contrast Media Allergy Unknown ANAPHYLAXIS Unverified 11/11/19 16:15 [IV Dye, Iodine Containing] levofloxacin [From LEVAQUIN] Allergy Unknown HIVES Unverified 11/11/19 16:15 NSAIDS (Non-Steroidal Allergy Unknown HIVES Unverified 11/11/19 16:15 Anti-Inflamma [Nsaids] povidone-iodine Allergy Unknown HIVES ITCH Unverified 11/11/19 16:15 [From BETADINE] soap [From BETADINE] Allergy Unknown HIVES ITCH Unverified 11/11/19 16:15 tramadol Allergy Unknown itching, Verified 09/14/14 00:00 hives decadron Allergy Unknown hives Uncoded 09/14/14 00:00 From Compazine Allergy Unknown HIVES Uncoded 11/11/19 16:15 From Lotensin Allergy Unknown HIVES Uncoded 11/11/19 16:15 From Toradol Allergy Unknown HIVES Uncoded 11/11/19 16:15 From Ultram Allergy Unknown HIVES Uncoded 11/11/19 16:15 IVP dye Allergy Unknown itching, Uncoded 09/14/14 00:00 hives Prochlorperazine Maleate Allergy Unknown oral Uncoded 09/14/14 00:00 itching Active Medications: Current Medications Acetaminophen (Acetaminophen 325 Mg Tablet) 650 mg PO Q6H PRN PRN Reason: Pain, Mild (Pain Scale 1-3) Albuterol/Ipratropium (Albuterol/Iprat 2.5/0.5mg 3 Ml Ampul.Neb) 3 ml INHALE RQ4H WHILE AWAKE [facility] Last Admin: 06/14/22 09:04 Dose: 3 ml Glucose (Glucose Gel 15 Gm Gel..Gram.) 15 gm PO Q15M PRN; Protocol PRN Reason: per Hypoglycemia Standing Ord. Heparin Sodium (Porcine) (Heparin Sodium,Porcine 5,000 Unit/Ml Vial) 5,000 unit SUBCUT Q8H [facility] Last Admin: 06/14/22 05:52 Dose: 5,000 unit Norepinephrine Bitartrate (Levophed) 8 mg in 250 mls @ 0 mls/hr IV .Q0M [facility]; Protocol Last Titration: 06/14/22 09:01 Dose: 0.03 mcg/kg/min, 5.61 mls/hr Dextrose (D10) 250 mls @ 750 mls/hr IV Q15M PRN; Protocol PRN Reason: per Hypoglycemia Standing Ord. Insulin Human Lispro (Insulin Lispro 100 Unit/Ml 3 Ml Vial) 0 unit SUBCUT QIDACHS [facility]; Protocol Loperamide HCl (Loperamide Hcl 2 Mg Capsule) 4 mg PO Q4H PRN PRN Reason: Diarrhea Pharmacy Consult (Consult Rx Perform Med Rec) 1 each MISCELLANE ONCE PRN PRN Reason: Consult order Home Medications Medication Instructions Recorded Confirmed Last Taken Type albuterol sulfate 2.5 mg/3 mL 2.5 mg inhalation Q4H PRN 06/13/22 06/13/22 Unknown History (0.083 %) solution for nebulization Shortness Of Breath Or Wheezing alprazolam 0.5 mg tablet 0.5 mg PO TID 06/13/22 06/13/22 Unknown History carvedilol 3.125 mg tablet 3.125 mg PO BID 06/13/22 06/13/22 Unknown History insulin glargine 100 unit/mL 30 unit subcut QPM 06/13/22 06/13/22 Unknown History subcutaneous solution (Lantus U-100 Insulin) insulin lispro 100 unit/mL 10 unit subcut TID 06/13/22 06/13/22 Unknown History subcutaneous cartridge (Humalog U-100 Insulin) loperamide 2 mg tablet 2 mg PO Q3H PRN Diarrhea 06/13/22 06/13/22 Unknown History melatonin 10 mg tablet 20 mg PO BEDTIME 06/13/22 06/13/22 Unknown History nitroglycerin 0.3 mg sublingual 0.3 mg sublingual Q5M PRN Chest 06/13/22 06/13/22 Unknown History tablet Pain sacubitril 97 mg-valsartan 103 mg 1 tab PO BID 06/13/22 06/13/22 Unknown History tablet (Entresto) zolpidem 5 mg tablet 10 mg PO BEDTIME 06/13/22 06/13/22 Unknown History Physical Exam Vital Signs: Vital Signs: Last Vital Signs Temp 98.2 F 06/14/22 08:00 Pulse 92 06/14/22 09:04 Resp 18 06/14/22 09:04 BP 105/63 06/14/22 09:01 Pulse Ox 100 06/14/22 08:00 O2 Del Method Room Air 06/14/22 08:00 O2 Flow Rate 2 06/14/22 06:00 Oxygen Flow Rate 2 06/13/22 17:30 BMI result Body Mass Index 34.8 Const: General: comfortable and no acute distress Orientation/consciousness: patient oriented x3 HEENT: Other: Unremarkable Head: Yes normal to inspection Neck: Neck: Yes normal visual inspection Chest: Chest palpation & inspection: normal inspection of the chest Resp: Auscultation: rhonchi Cardio: Palpation: normal PMI Heart sounds: S1 normal heart sound present, S2 normal heart sound present, no gallops, Murmur heart sound present systolic I/ and at the right sternal border and no rubs GI: Palpation (GI): Soft to palpation Back/Spine/Pelvis: Other: unremarkable Skin: General skin exam: no rashes or lesions noted Neuro: General: patient oriented x3 Extrem: General: Yes normal to inspection Psych: Mental Status: mental status grossly normal Objective Labs and Meds 06/14/22 05:15 06/14/22 05:15 Lab results: Laboratory Results - last 24 hr 06/13/22 06/13/22 06/13/22 18:21 18:21 18:21 WBC 4.9 RBC 5.01 Hgb 13.7 Hct 43.4 MCV 86.6 MCH 27.3 MCHC 31.6 RDW 14.9 Plt Count 159 L MPV 10.1 Immature Gran % (Auto) 0.2 Neut % (Auto) 60.1 Lymph % (Auto) 29.2 [place] % (Auto) 6.4 Eos % (Auto) 3.7 Baso % (Auto) 0.4 Lymph # (Auto) 1.4 [place] # (Auto) 0.3 Eos # (Auto) 0.2 Baso # (Auto) 0.0 Abs Immat Gran (auto) 0.01 Absolute Neuts (auto) 2.9 Absolute Nucleated RBC 0.000 Nucleated RBC % (auto) 0.0 PT 12.9 INR 1.1 Sodium 138 Potassium 4.7 Chloride 104 Carbon Dioxide 23 Anion Gap 16 BUN 39 H Creatinine 2.15 H Estim Creat Clear Calc 30.6 Estimated GFR 23 POC Glucose Random Glucose 265 H Lactic Acid Calcium 8.4 Magnesium Total Bilirubin 0.7 Direct Bilirubin 0.3 AST 136 H ALT 128 H Alkaline Phosphatase 157 H Troponin I High Sens B-Natriuretic Peptide Total Protein 7.2 Albumin 3.7 Lipase 12 Urine Color Urine Appearance Urine pH Ur Specific [place] Urine Protein Urine Glucose (UA) Urine Ketones Urine Blood Urine Nitrite Ur Leukocyte Esterase Urine Opiates Screen Urine Fentanyl Screen Ur Barbiturates Screen Ur Phencyclidine Scrn Ur Amphetamines Screen U Benzodiazepines Scrn Urine Cocaine Screen U Marijuana (THC) Screen 06/13/22 06/13/22 06/13/22 18:21 18:21 18:21 WBC RBC Hgb Hct MCV MCH MCHC RDW Plt Count MPV Immature Gran % (Auto) Neut % (Auto) Lymph % (Auto) [place] % (Auto) Eos % (Auto) Baso % (Auto) Lymph # (Auto) [place] # (Auto) Eos # (Auto) Baso # (Auto) Abs Immat Gran (auto) Absolute Neuts (auto) Absolute Nucleated RBC Nucleated RBC % (auto) PT INR Sodium Potassium Chloride Carbon Dioxide Anion Gap BUN Creatinine Estim Creat Clear Calc Estimated GFR POC Glucose Random Glucose Lactic Acid 1.3 Calcium Magnesium Total Bilirubin Direct Bilirubin AST ALT Alkaline Phosphatase Troponin I High Sens 13.2 B-Natriuretic Peptide 66 Total Protein Albumin Lipase Urine Color Urine Appearance Urine pH Ur Specific [place] Urine Protein Urine Glucose (UA) Urine Ketones Urine Blood Urine Nitrite Ur Leukocyte Esterase Urine Opiates Screen Urine Fentanyl Screen Ur Barbiturates Screen Ur Phencyclidine Scrn Ur Amphetamines Screen U Benzodiazepines Scrn Urine Cocaine Screen U Marijuana (THC) Screen 06/13/22 06/13/22 06/13/22 18:21 20:41 20:41 WBC RBC Hgb Hct MCV MCH MCHC RDW Plt Count MPV Immature Gran % (Auto) Neut % (Auto) Lymph % (Auto) [place] % (Auto) Eos % (Auto) Baso % (Auto) Lymph # (Auto) [place] # (Auto) Eos # (Auto) Baso # (Auto) Abs Immat Gran (auto) Absolute Neuts (auto) Absolute Nucleated RBC Nucleated RBC % (auto) PT INR Sodium Potassium Chloride Carbon Dioxide Anion Gap BUN Creatinine Estim Creat Clear Calc Estimated GFR POC Glucose Random Glucose Lactic Acid Calcium Magnesium Total Bilirubin Direct Bilirubin AST ALT Alkaline Phosphatase Troponin I High Sens B-Natriuretic Peptide 61 Total Protein Albumin Lipase Urine Color Yellow Urine Appearance Clear Urine pH 6.0 Ur Specific [place] 1.010 Urine Protein Negative Urine Glucose (UA) Negative Urine Ketones Negative Urine Blood Negative Urine Nitrite Negative Ur Leukocyte Esterase Negative Urine Opiates Screen Not Detected Urine Fentanyl Screen Not Detected Ur Barbiturates Screen Not Detected Ur Phencyclidine Scrn Not Detected Ur Amphetamines Screen Not Detected U Benzodiazepines Scrn Not Detected Urine Cocaine Screen Not Detected U Marijuana (THC) Screen Not Detected 06/14/22 06/14/22 06/14/22 01:10 05:15 05:15 WBC 5.6 RBC 4.28 Hgb 11.6 L Hct 37.4 MCV 87.4 MCH 27.1 MCHC 31.0 RDW 15.0 Plt Count 120 L MPV 9.0 L Immature Gran % (Auto) 0.2 Neut % (Auto) 48.1 Lymph % (Auto) 37.1 [place] % (Auto) 8.5 Eos % (Auto) 5.7 H Baso % (Auto) 0.4 Lymph # (Auto) 2.1 [place] # (Auto) 0.5 Eos # (Auto) 0.3 Baso # (Auto) 0.0 Abs Immat Gran (auto) 0.01 Absolute Neuts (auto) 2.7 Absolute Nucleated RBC 0.000 Nucleated RBC % (auto) 0.0 PT INR Sodium 143 Potassium 4.0 Chloride 113 H Carbon Dioxide 20 L Anion Gap 14 BUN 25 H Creatinine 1.08 Estim Creat Clear Calc 60.4 Estimated GFR 51 POC Glucose 194 H Random Glucose 144 H Lactic Acid Calcium 7.6 L D Magnesium 1.3 L* Total Bilirubin Direct Bilirubin AST ALT Alkaline Phosphatase Troponin I High Sens B-Natriuretic Peptide Total Protein Albumin 3.7 Lipase Urine Color Urine Appearance Urine pH Ur Specific [place] Urine Protein Urine Glucose (UA) Urine Ketones Urine Blood Urine Nitrite Ur Leukocyte Esterase Urine Opiates Screen Urine Fentanyl Screen Ur Barbiturates Screen Ur Phencyclidine Scrn Ur Amphetamines Screen U Benzodiazepines Scrn Urine Cocaine Screen U Marijuana (THC) Screen 06/14/22 05:34 WBC RBC Hgb Hct MCV MCH MCHC RDW Plt Count MPV Immature Gran % (Auto) Neut % (Auto) Lymph % (Auto) [place] % (Auto) Eos % (Auto) Baso % (Auto) Lymph # (Auto) [place] # (Auto) Eos # (Auto) Baso # (Auto) Abs Immat Gran (auto) Absolute Neuts (auto) Absolute Nucleated RBC Nucleated RBC % (auto) PT INR Sodium Potassium Chloride Carbon Dioxide Anion Gap BUN Creatinine Estim Creat Clear Calc Estimated GFR POC Glucose 138 H Random Glucose Lactic Acid Calcium Magnesium Total Bilirubin Direct Bilirubin AST ALT Alkaline Phosphatase Troponin I High Sens B-Natriuretic Peptide Total Protein Albumin Lipase Urine Color Urine Appearance Urine pH Ur Specific [place] Urine Protein Urine Glucose (UA) Urine Ketones Urine Blood Urine Nitrite Ur Leukocyte Esterase Urine Opiates Screen Urine Fentanyl Screen Ur Barbiturates Screen Ur Phencyclidine Scrn Ur Amphetamines Screen U Benzodiazepines Scrn Urine Cocaine Screen U Marijuana (THC) Screen ECG Interpretation: Admission EKG with sinus rhythm at 88/Min; frequent PVCs; LVH. In the repeat EKG, there are no PVC seen. Imaging Radiologist's impression: Impressions Abdomen/Pelvis CT 06/13/22 17:45 IMPRESSION: 1. No acute abnormality CT scan abdomen pelvis. 2. Patchy and partially consolidated airspace opacities in the right lung base concerning for pneumonia. 3. Cardiomegaly. Pacemaker leads in heart. 4. Status post cholecystectomy. 5. Diverticulosis of colon. No acute abnormality of the bowel. Fleischner guidelines were followed. Assessment and Plan (1) Acute hypotension: Status: Acute (2) CHICHI (acute kidney injury): Status: Acute (3) Chronic combined systolic and diastolic CHF (congestive heart failure): Status: Acute (4) NICM (nonischemic cardiomyopathy): Status: Acute (5) Chronic diarrhea: Status: Acute (6) Presence of CardioMEMS HF system: Status: Acute Plan High sensitivity troponin unremarkable. Cardiac BNP is 66 and 61, well within normal limits. 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 Severe global hypokinesis with regional variation. Mild mitral regurgitation. Mild pulmonary hypertension. Possible PFO. Symptoms possibly related to increase in Entresto and Coreg dosing leading to hypotension, renal failure, with a background of chronic diarrhea. And dehydration probably main etiology. Hopefully, we can wean her off the pressors. Creatinine already seems normalized. We will also interrogate the CardioMEMS. We can then decide her future medication regimen. If she continues to have these chest burning/jaw pain after all this is corrected, then may need diagnostic catheterization. Discussed with . Time Spent With Patient Time: Total time managing care of this patient today 75 minutes. This includes time spent in review of chart, outside cardiac records, laboratory data, imaging studies, review of telemetry, counseling patient, discussion with chainstitch felled seam operator, RN, documentation, coordination of care. Procedures Date of Service Date of Service: 06/14/22
--- NOTE | 2022-06-14 10:47 | P.PNCC_ITS ---
Subjective Subjective Date of Service: 06/14/22 Interval History: 66-year-old lady with underlying history of CAD status post PCI, combined systolic and diastolic congestive heart failure with recent EF of 25%, status post AICD, prior VT, also CKD, COPD, [place] on CPAP suboptimal compliant, home O2 2-3 L, diabetes mellitus, hydronephrosis, obesity with recent admission to [facility] for congestive heart failure admitted on 06/13/2022 with Complains of diarrhea,abdominal discomfort, dysuria. On ER evaluation she was noted to have essentially normal CT abdomen/pelvis, negative UA, acute kidney injury, and hypotension with poor response to IV fluids requiring vasopressor s upport. Patient's Entresto and Coreg her recently been increased. her workup showing infectious etiology to her symptoms. She did receive empiric azithromycin and ceftriaxone. Patient was evaluated by Cardiology service. No events overnight. Titrated off pressor support this a.m.. Critical Care Time (minutes): 45 Physical Exam Vital Signs: Vital Signs: Last Vital Signs Temp 98.2 F 06/14/22 08:00 Pulse 88 06/14/22 10:46 Resp 18 06/14/22 10:00 BP 86/47 L 06/14/22 10:46 Pulse Ox 98 06/14/22 10:00 O2 Del Method Room Air 06/14/22 10:00 O2 Flow Rate 2 06/14/22 06:00 Oxygen Flow Rate 2 06/13/22 17:30 BMI result Body Mass Index 34.8 Const: General: no acute distress, alert and awake Eyes: Sclerae: sclerae normal EOM: EOMs intact bilaterally Neck: Neck: Yes no lymphadenopathy, Yes trachea midline and Yes supple Resp: Effort & Inspection: normal respiratory effort and no respiratory distress Auscultation: clear to auscultation bilaterally Cardio: Rate: regular rate Rhythm: regular rhythm Heart sounds: no gallops, no murmurs and no rubs GI: Palpation (GI): Soft to palpation and Other GI palpation findings present ( Nontender) Auscultation: normal bowel sounds Extrem: General: No clubbing, No cyanosis and Yes edema ( 1+ bilateral) Objective Data Labs 06/14/22 05:15 06/14/22 05:15 Labs: Laboratory Results - last 24 hr 06/13/22 06/13/22 06/13/22 18:21 18:21 18:21 WBC 4.9 RBC 5.01 Hgb 13.7 Hct 43.4 MCV 86.6 MCH 27.3 MCHC 31.6 RDW 14.9 Plt Count 159 L MPV 10.1 Immature Gran % (Auto) 0.2 Neut % (Auto) 60.1 Lymph % (Auto) 29.2 Pershing % (Auto) 6.4 Eos % (Auto) 3.7 Baso % (Auto) 0.4 Lymph # (Auto) 1.4 Pershing # (Auto) 0.3 Eos # (Auto) 0.2 Baso # (Auto) 0.0 Abs Immat Gran (auto) 0.01 Absolute Neuts (auto) 2.9 Absolute Nucleated RBC 0.000 Nucleated RBC % (auto) 0.0 PT 12.9 INR 1.1 Sodium 138 Potassium 4.7 Chloride 104 Carbon Dioxide 23 Anion Gap 16 BUN 39 H Creatinine 2.15 H Estim Creat Clear Calc 30.6 Estimated GFR 23 POC Glucose Random Glucose 265 H Lactic Acid Calcium 8.4 Magnesium Total Bilirubin 0.7 Direct Bilirubin 0.3 AST 136 H ALT 128 H Alkaline Phosphatase 157 H Troponin I High Sens B-Natriuretic Peptide Total Protein 7.2 Albumin 3.7 Lipase 12 Urine Color Urine Appearance Urine pH Ur Specific [place] Urine Protein Urine Glucose (UA) Urine Ketones Urine Blood Urine Nitrite Ur Leukocyte Esterase Urine Opiates Screen Urine Fentanyl Screen Ur Barbiturates Screen Ur Phencyclidine Scrn Ur Amphetamines Screen U Benzodiazepines Scrn Urine Cocaine Screen U Marijuana (THC) Screen 06/13/22 06/13/22 06/13/22 18:21 18:21 18:21 WBC RBC Hgb Hct MCV MCH MCHC RDW Plt Count MPV Immature Gran % (Auto) Neut % (Auto) Lymph % (Auto) Pershing % (Auto) Eos % (Auto) Baso % (Auto) Lymph # (Auto) Pershing # (Auto) Eos # (Auto) Baso # (Auto) Abs Immat Gran (auto) Absolute Neuts (auto) Absolute Nucleated RBC Nucleated RBC % (auto) PT INR Sodium Potassium Chloride Carbon Dioxide Anion Gap BUN Creatinine Estim Creat Clear Calc Estimated GFR POC Glucose Random Glucose Lactic Acid 1.3 Calcium Magnesium Total Bilirubin Direct Bilirubin AST ALT Alkaline Phosphatase Troponin I High Sens 13.2 B-Natriuretic Peptide 66 Total Protein Albumin Lipase Urine Color Urine Appearance Urine pH Ur Specific [place] Urine Protein Urine Glucose (UA) Urine Ketones Urine Blood Urine Nitrite Ur Leukocyte Esterase Urine Opiates Screen Urine Fentanyl Screen Ur Barbiturates Screen Ur Phencyclidine Scrn Ur Amphetamines Screen U Benzodiazepines Scrn Urine Cocaine Screen U Marijuana (THC) Screen 06/13/22 06/13/22 06/13/22 18:21 20:41 20:41 WBC RBC Hgb Hct MCV MCH MCHC RDW Plt Count MPV Immature Gran % (Auto) Neut % (Auto) Lymph % (Auto) Pershing % (Auto) Eos % (Auto) Baso % (Auto) Lymph # (Auto) [place]hing # (Auto) Eos # (Auto) Baso # (Auto) Abs Immat Gran (auto) Absolute Neuts (auto) Absolute Nucleated RBC Nucleated RBC % (auto) PT INR Sodium Potassium Chloride Carbon Dioxide Anion Gap BUN Creatinine Estim Creat Clear Calc Estimated GFR POC Glucose Random Glucose Lactic Acid Calcium Magnesium Total Bilirubin Direct Bilirubin AST ALT Alkaline Phosphatase Troponin I High Sens B-Natriuretic Peptide 61 Total Protein Albumin Lipase Urine Color Yellow Urine Appearance Clear Urine pH 6.0 Ur Specific [place] 1.010 Urine Protein Negative Urine Glucose (UA) Negative Urine Ketones Negative Urine Blood Negative Urine Nitrite Negative Ur Leukocyte Esterase Negative Urine Opiates Screen Not Detected Urine Fentanyl Screen Not Detected Ur Barbiturates Screen Not Detected Ur Phencyclidine Scrn Not Detected Ur Amphetamines Screen Not Detected U Benzodiazepines Scrn Not Detected Urine Cocaine Screen Not Detected U Marijuana (THC) Screen Not Detected 06/14/22 06/14/22 06/14/22 01:10 05:15 05:15 WBC 5.6 RBC 4.28 Hgb 11.6 L Hct 37.4 MCV 87.4 MCH 27.1 MCHC 31.0 RDW 15.0 Plt Count 120 L MPV 9.0 L Immature Gran % (Auto) 0.2 Neut % (Auto) 48.1 Lymph % (Auto) 37.1 Pershing % (Auto) 8.5 Eos % (Auto) 5.7 H Baso % (Auto) 0.4 Lymph # (Auto) 2.1 Pershing # (Auto) 0.5 Eos # (Auto) 0.3 Baso # (Auto) 0.0 Abs Immat Gran (auto) 0.01 Absolute Neuts (auto) 2.7 Absolute Nucleated RBC 0.000 Nucleated RBC % (auto) 0.0 PT INR Sodium 143 Potassium 4.0 Chloride 113 H Carbon Dioxide 20 L Anion Gap 14 BUN 25 H Creatinine 1.08 Estim Creat Clear Calc 60.4 Estimated GFR 51 POC Glucose 194 H Random Glucose 144 H Lactic Acid Calcium 7.6 L D Magnesium 1.3 L* Total Bilirubin Direct Bilirubin AST ALT Alkaline Phosphatase Troponin I High Sens B-Natriuretic Peptide Total Protein Albumin 3.7 Lipase Urine Color Urine Appearance Urine pH Ur Specific [place] Urine Protein Urine Glucose (UA) Urine Ketones Urine Blood Urine Nitrite Ur Leukocyte Esterase Urine Opiates Screen Urine Fentanyl Screen Ur Barbiturates Screen Ur Phencyclidine Scrn Ur Amphetamines Screen U Benzodiazepines Scrn Urine Cocaine Screen U Marijuana (THC) Screen 06/14/22 05:34 WBC RBC Hgb Hct MCV MCH MCHC RDW Plt Count MPV Immature Gran % (Auto) Neut % (Auto) Lymph % (Auto) [place] % (Auto) Eos % (Auto) Baso % (Auto) Lymph # (Auto) [place] # (Auto) Eos # (Auto) Baso # (Auto) Abs Immat Gran (auto) Absolute Neuts (auto) Absolute Nucleated RBC Nucleated RBC % (auto) PT INR Sodium Potassium Chloride Carbon Dioxide Anion Gap BUN Creatinine Estim Creat Clear Calc Estimated GFR POC Glucose 138 H Random Glucose Lactic Acid Calcium Magnesium Total Bilirubin Direct Bilirubin AST ALT Alkaline Phosphatase Troponin I High Sens B-Natriuretic Peptide Total Protein Albumin Lipase Urine Color Urine Appearance Urine pH Ur Specific [place] Urine Protein Urine Glucose (UA) Urine Ketones Urine Blood Urine Nitrite Ur Leukocyte Esterase Urine Opiates Screen Urine Fentanyl Screen Ur Barbiturates Screen Ur Phencyclidine Scrn Ur Amphetamines Screen U Benzodiazepines Scrn Urine Cocaine Screen U Marijuana (THC) Screen Progress Note: A&P Assessment and plan (1) Intravascular volume depletion: Status: Acute (2) CHICHI (acute kidney injury): Status: Acute (3) Chronic diarrhea: Status: Acute (4) Chronic combined systolic and diastolic CHF (congestive heart failure): Status: Acute (5) Acute hypotension: Status: Acute (6) Presence of CardioMEMS HF system: Status: Acute (7) Diabetes: Status: Acute (8) CAD (coronary artery disease): Status: Acute Plan Assessment: 66-year-old lady with underlying biventricular failure, obesity, diabetes, chronic diarrhea admitted with intravascular volume depletion and acute kidney injury, likely secondary to recent increase in her blood pressure medications Plan: Neuro: No acute issues. Cardiac: underlying chronic biventricular congestive heart failure with EF of 25%. Cardiology service care appreciated. Recent increase in patient's Coreg and Entresto, now held secondary to hypotension. Titrated off pressors. Pulmonary: Chronic hypoxic respiratory failure. Now on baseline 2 L supplemental oxygen. Renal: Acute renal failure, likely secondary to intravascular volume depletion on the background of chronic diarrhea , worsen by increase in antihyp ertensive medications, improved with IV fluids. non oliguric. Continue to monitor renal indices and urine output. Endo: No acute issues. Underlying diabetes mellitus. GI: No acute issues. ID: No evidence of sepsis at this time. Heme/Onc: No acute issues. Psych: No acute issues. Miscellaneous: No acute issues. Prophylaxis: Heparin Diet: diabetic Critical care time spent: 45 minutes Quality Stroke Does the patient have a stroke diagnosis?: No VTE Prior VTE?: No VTE Risk Level:: Medical - moderate - high VTE Device Contraindication: N/A - Device Ordered VTE Drug Contraindication: N/A - Med Ordered
[2022-06-14] MEDS: Lactated Ringers 1,000 ML 150 ML IVCONT (10:53)
[2022-06-14] MEDS: ondansetron HCL 4 MG/2 ML VIAL IVPUSH ×2 (10:53→18:19)
--- NOTE | 2022-06-14 11:30 | MHC.CM.PN ---
This proposal manager writer met with patient. Prior to hospitalization patient was at home with 36-45 hours of HABILITATION ASSISTANT services per week. She has Oxygen 2-3L @ home. IMM delivered. HCP completed copy in chart. Goal is to return home w/ VNA as appropriate. Patient may need ride home if HABILITATION ASSISTANT is unable to provide. PCP verifed and accurate.
[2022-06-14 11:50] LABS: Glucose, Whole Blood 202 mg/dL (60-115)
--- NOTE | 2022-06-14 12:40 | PC.NURSE ---
Levo gtt titrated off per EMAR. MAP maintaining 60-65. Okay per MD to transfer to medical floor. Awaiting handoff at this time.
[2022-06-14 16:46] LABS: Glucose, Whole Blood 173 mg/dL (60-115)
[2022-06-14] MEDS: Loperamide HCl 2 MG CAPSULE 4 MG PO (17:05)
--- NOTE | 2022-06-14 19:24 | PC.NURSE ---
pt came up to unit around 14:30 - A&O x 4, vitals within normal limits with the exception of low bp however provider aware and pt asymptomatic. Pt was made moderate fall risk , pt refused bed alarm and red socks. pt educated on fall risk precaution, verbalize understanding and still refused. pt agrees to ring when needing to ambulate to bathroom due to needing oxygen and walker. pt steady on feet.
[2022-06-14 20:22] LABS: Glucose, Whole Blood 155 mg/dL (60-115)
[2022-06-14] MEDS: Zolpidem Tartrate 5 MG TABLET PO (22:07)
[2022-06-15] VITALS (11 sets, daily range): BP systolic 109–162; BP diastolic 52–80; PULSE 84–102; RESP 18–20; TEMP 36.5–37.1; O2SAT 96–100; BMI 35.3
[2022-06-15] MEDS: Acetaminophen 325 MG TABLET 650 MG PO ×3 (00:52→21:10)
[2022-06-15] MEDS: oxyCODONE HCl Immed Release 5 MG TABLET PO (00:52)
[2022-06-15] MEDS: Heparin Sodium,Porcine 5,000 UNIT/ML VIAL 5000 UNIT SUBCUT ×3 (05:17→21:11)
[2022-06-15 06:18] LABS: MANUAL DIFF FLAG NO
[2022-06-15 06:20] LABS: Basophils Percent Auto 0.6 % (0-2); Eosinophils Absolute Auto 0.3 X10*3/uL (0.0-0.4); Eosinophils Percent Auto 8.8 % (0-4); Hemoglobin 10.5 g/dl (12.0-16.0); Lymphocytes Absolute Auto 1.4 X10*3/uL (1.2-4.9); Mean Corpuscular HGB Conc 30.9 g/dl (31.0-35.0); Mean Corpuscular Hemoglobin 27.6 pg (27.0-33.0); Mean Corpuscular Volume 89.5 fL (80.0-98.0); Mean Platelet Volume 9.8 fL (9.4-12.3); Monocytes Absolute Auto 0.3 X10*3/uL (0.1-1.2); Neutrophils Absolute Auto 1.2 x10*3/uL (2.0-8.3); Neutrophils Percent Auto 37.6 % (45-73); Platelet Count 108 X10*3/uL (160-400); Red Cell Distribution Width 14.9 % (11.0-16.0); White Blood Count 3.3 X10*3/uL (4.8-10.8)
[2022-06-15 06:21] LABS: Venous Blood Gas Refer to POC result
[2022-06-15 06:22] LABS: VBG Base Excess 2.6 mmol/L; VBG HCO3 29 mmol/L (22-26); VBG pCO2 58 mmHg; VBG pH 7.31 (7.32-7.43); VBG pO2 54 mmHg
[2022-06-15 06:39] LABS: Albumin Level 3.3 g/dL (3.5-5.0); Anion Gap 9 (12-20); Blood Urea Nitrogen 12 mg/dL (9-16); Calcium 7.9 mg/dL (8.4-10.2); Carbon Dioxide 27 mmol/L (22-29); Chloride 111 mmol/L (96-108); Creatinine Clr Calc Pharmacy 78.2; Estimated Glomerular Filt Rate > 60; Glucose Random 229 mg/dL (60-115); Magnesium 1.7 mg/dL (1.6-2.6); Phosphorus 2.1 mg/dL (2.7-4.5); Sodium 143 mmol/L (135-145)
[2022-06-15 07:23] LABS: Glucose, Whole Blood 201 mg/dL (60-115)
[2022-06-15] MEDS: ALPRAZolam 0.5 MG TABLET PO ×3 (07:47→21:11)
[2022-06-15] MEDS: Insulin Lispro 100 UNIT/ML 3 ML VIAL SUBCUT ×3 (07:50→16:47)
[2022-06-15] MEDS: ondansetron HCL 4 MG/2 ML VIAL IVPUSH ×4 (07:55→21:11)
[2022-06-15] MEDS: Insulin Glargine,Hum.rec.anlog 100 UNIT/ML 10 ML VIAL 20 UNIT SUBCUT (09:47)
[2022-06-15] MEDS: Butalb/Acetamin/Caff 50/325/40 TABLET 1 TAB PO ×3 (09:47→21:10)
--- NOTE | 2022-06-15 10:15 | HO.PM.IMPN ---
Subjective Subjective Date of Service: 06/15/22 Interval History: No acute issues overnight. Remains hemodynamically stable. Is having chest burning and tightness with ambulation Review of Systems Admits to exertional chest burning/squeezing with ambulation Denies shortness of breath Denies nausea vomiting diarrhea Denies fever chills Physical Exam Vital Signs: Vital Signs: Last Vital Signs Temp 98.4 F 06/15/22 07:35 Pulse 91 06/15/22 07:35 Resp 18 06/15/22 07:35 BP 114/61 06/15/22 07:35 Pulse Ox 99 06/15/22 07:35 O2 Del Method CPAP 06/15/22 07:35 O2 Flow Rate 3 06/14/22 20:04 Oxygen Flow Rate 2 06/13/22 17:30 BMI result Body Mass Index 35.3 Const: Other: No acute distress Resp: Other: Clear to auscultation bilaterally no rales rhonchi or wheezes Cardio: Other: No S4; positive S1-S2; no S3 murmurs rubs or gallops GI: Other: Soft nontender nondistended normoactive bowel sounds Extrem: Other: No edema bilaterally Objective Data Active Medications Acetaminophen (Acetaminophen 325 Mg Tablet) 650 mg PO Q4H PRN PRN Reason: Pain, Mild (Pain Scale 1-3) Last Admin: 06/15/22 07:48 Dose: 650 mg Documented By: ANNETTE Acetaminophen/Butalbital/Caffeine (Butalb/Acetamin/Caff 50/325/40 Tablet) 1 tab PO Q4H PRN PRN Reason: Headache Last Admin: 06/15/22 09:47 Dose: 1 tab Documented By: ANNETTE Albuterol/Ipratropium (Albuterol/Iprat 2.5/0.5mg 3 Ml Ampul.Neb) 3 ml INHALE RQ4H WHILE AWAKE [facility] [place] Last Admin: 06/15/22 08:10 Dose: Not Given Documented By: MONIQUE Non-Admin Reason: pt refused at this time pt will call for neb Alprazolam (Alprazolam 0.5 Mg Tablet) 0.5 mg PO TID [facility] [place] Last Admin: 06/15/22 07:47 Dose: 0.5 mg Documented By: ANNETTE Glucose (Glucose Gel 15 Gm Gel..Gram.) 15 gm PO Q15M PRN; Protocol PRN Reason: per Hypoglycemia Standing Ord. Heparin Sodium (Porcine) (Heparin Sodium,Porcine 5,000 Unit/Ml Vial) 5,000 unit SUBCUT Q8H [facility] [place] Last Admin: 06/15/22 05:17 Dose: 5,000 unit Documented By: DENICE Dextrose (D10) 250 mls @ 750 mls/hr IV Q15M PRN; Protocol PRN Reason: per Hypoglycemia Standing Ord. Insulin Glargine (Insulin Glargine,Hum.Rec.Anlog 100 Unit/Ml 10 Ml Vial) 20 unit SUBCUT DAILY [facility] [place] Last Admin: 06/15/22 09:47 Dose: 20 unit Documented By: ANNETTE Insulin Human Lispro (Insulin Lispro 100 Unit/Ml 3 Ml Vial) 0 unit SUBCUT QIDACHS [facility] [place]; Protocol Last Admin: 06/15/22 07:50 Dose: 4 unit Documented By: ANNETTE Loperamide HCl (Loperamide Hcl 2 Mg Capsule) 4 mg PO Q4H PRN PRN Reason: Diarrhea Last Admin: 06/14/22 17:05 Dose: 4 mg Documented By: EVAN Ondansetron HCl (Ondansetron Hcl 4 Mg/2 Ml Vial) 4 mg IVPUSH Q6H PRN PRN Reason: Nausea Last Admin: 06/15/22 07:55 Dose: 4 mg Documented By: ANNETTE Pharmacy Consult (Consult Rx Perform Med Rec) 1 each MISCELLANE ONCE PRN PRN Reason: Consult order Zolpidem Tartrate (Zolpidem Tartrate 5 Mg Tablet) 5 mg PO BEDTIME [facility] [place] Last Admin: 06/14/22 22:07 Dose: 5 mg Documented By: DENICE Comments: pt is taking as home meds Labs 06/15/22 06:10 06/15/22 06:10 Labs: Laboratory Results - last 24 hr 06/14/22 06/14/22 06/14/22 11:46 16:43 20:15 MCV MCH MCHC RDW Plt Count MPV Immature Gran % (Auto) Neut % (Auto) Lymph % (Auto) Smith % (Auto) Eos % (Auto) Baso % (Auto) Lymph # (Auto) Smith # (Auto) Eos # (Auto) Baso # (Auto) Abs Immat Gran (auto) Absolute Neuts (auto) Absolute Nucleated RBC Nucleated RBC % (auto) VBG pH VBG pCO2 VBG pO2 VBG HCO3 VBG O2 Saturation VBG Base Excess Anion Gap Estim Creat Clear Calc Estimated GFR POC Glucose 202 H 173 H 155 H Random Glucose Calcium Phosphorus Magnesium Albumin 06/15/22 06/15/22 06/15/22 06:10 06:10 06:15 MCV 89.5 MCH 27.6 MCHC 30.9 L RDW 14.9 Plt Count 108 L MPV 9.8 Immature Gran % (Auto) 0.0 Neut % (Auto) 37.6 L Lymph % (Auto) 43.0 H Smith % (Auto) 10.0 Eos % (Auto) 8.8 H Baso % (Auto) 0.6 Lymph # (Auto) 1.4 Smith # (Auto) 0.3 Eos # (Auto) 0.3 Baso # (Auto) 0.0 Abs Immat Gran (auto) 0.00 Absolute Neuts (auto) 1.2 L Absolute Nucleated RBC 0.000 Nucleated RBC % (auto) 0.0 VBG pH 7.31 L VBG pCO2 58 VBG pO2 54 VBG HCO3 29 H VBG O2 Saturation 85.0 VBG Base Excess 2.6 Anion Gap 9 L Estim Creat Clear Calc 78.2 Estimated GFR > 60 POC Glucose Random Glucose 229 H Calcium 7.9 L Phosphorus 2.1 L Magnesium 1.7 Albumin 3.3 L 06/15/22 07:19 MCV MCH MCHC RDW Plt Count MPV Immature Gran % (Auto) Neut % (Auto) Lymph % (Auto) Smith % (Auto) Eos % (Auto) Baso % (Auto) Lymph # (Auto) Smith # (Auto) Eos # (Auto) Baso # (Auto) Abs Immat Gran (auto) Absolute Neuts (auto) Absolute Nucleated RBC Nucleated RBC % (auto) VBG pH VBG pCO2 VBG pO2 VBG HCO3 VBG O2 Saturation VBG Base Excess Anion Gap Estim Creat Clear Calc Estimated GFR POC Glucose 201 H Random Glucose Calcium Phosphorus Magnesium Albumin Microbiology Microbiology Results: Microbiology 06/13/22 18:21 Blood Culture - Preliminary Blood - Venous No growth after 24 hours. 06/13/22 18:21 Blood Culture - Preliminary Blood - Venous No growth after 24 hours. Assessment and Plan (1) Acute hypotension: Status: Acute (2) CHICHI (acute kidney injury): Status: Acute (3) Chronic combined systolic and diastolic CHF (congestive heart failure): Status: Acute (4) Diabetes: Status: Acute Plan Assessment: 66-year-old lady with underlying biventricular failure, obesity, diabetes, chronic diarrhea admitted with intravascular volume depletion and acute kidney injury, likely secondary to recent increase in her blood pressure medications. Hemodynamically stable overnight 1.Hypotension -normotensive without cardiac meds -Mems device interrogated by cardiology -follow clinically today in cardiology would advise on adding back meds and doses 2. CHICHI (likely related to low flow state) -normalized now that pressures are normalized -follow renals/divalents 3. Chronic combined systolic and diastolic CHF -stable at present time -await Cardiology input related to resuming meds -given exertional chest burning. .. Cardiology will decide on diagnostic catheterization versus outpatient workup 4. DM II -acceptable control on current therapies -continue basal insulin along with lispro correctional scale Lovenox Full Code Patient requires ongoing hospitalization to monitor cardiac output and adjust therapies as appropriate Time Spent With Patient Time: Total time managing care of this patient today ____ minutes. Quality Stroke Does the patient have a stroke diagnosis?: No VTE Prior VTE?: No VTE Risk Level:: Medical - moderate - high VTE Device Contraindication: N/A - Device Ordered VTE Drug Contraindication: N/A - Med Ordered
--- NOTE | 2022-06-15 10:32 | PM.PNCARD ---
Subjective Subjective Date of Service: 06/15/22 Interval history: She states that she feels okay. No new complaints. Review of Systems Review of Systems Yes all other systems are reviewed and are negative Constitutional: Reports as per HPI and Reports no additional constitutional complaints Eyes: Reports as per HPI and Denies no additional eye complaints Denies system reviewed and no additional complaints, except as documented and Reports as per HPI Cardiovascular: Reports as per HPI, Reports no additional cardiovascular complaints, Denies acrocyanosis, Denies cool extremities, Denies chest pain, Denies leg edema, Denies lightheadedness, Denies palpitations and Denies dyspnea Respiratory: Reports as per HPI, Denies no additional respiratory complaints and Denies dyspnea Gastrointestinal: Reports as per HPI and Denies no additional gastrointestinal complaints Genitourinary: Reports as per HPI Musculoskeletal: Reports no additional musculoskeletal complaints and Reports as per HPI Skin/Breast: Reports system reviewed and no additional complaints, except as docu Reports system reviewed and no additional complaints, except as documented and Reports as per HPI Psychiatric: Reports no additional psychiatric complaints and Reports as per HPI Endocrine: Reports no additional endocrine complaints, Reports as per HPI and Denies palpitations Hematologic/Lymphatic: Reports no additional hematologic/lymphatic complaints and Reports as per HPI Allergic/Immunologic: Reports no additional allergic/immunologic complaints and Reports as per HPI Physical Exam Vital Signs: Last Vital Signs Temp 98.4 F 06/15/22 07:35 Pulse 91 06/15/22 07:35 Resp 18 06/15/22 07:35 BP 114/61 06/15/22 07:35 Pulse Ox 99 06/15/22 07:35 O2 Del Method CPAP 06/15/22 07:35 O2 Flow Rate 3 06/14/22 20:04 Oxygen Flow Rate 2 06/13/22 17:30 BMI result Body Mass Index 35.3 Const General: comfortable and no acute distress Orientation/consciousness: patient oriented x3 HEENT Other: Unremarkable Head: Yes normal to inspection Neck Neck: Yes normal visual inspection Chest Chest palpation & inspection: normal inspection of the chest Resp Auscultation: crackles bilateral at the base Cardio Palpation: normal PMI Heart sounds: S1 normal heart sound present, S2 normal heart sound present, no gallops, no murmurs and no rubs GI Palpation (GI): Soft to palpation Back/Spine/Pelvis Other: unremarkable Skin General skin exam: no rashes or lesions noted Neuro General: patient oriented x3 Extrem General: Yes normal to inspection Psych Mental Status: mental status grossly normal Objective Labs and Meds 06/15/22 06:10 06/15/22 06:10 Lab results: Laboratory Results - last 24 hr 06/14/22 06/14/22 06/14/22 11:46 16:43 20:15 WBC RBC Hgb Hct MCV MCH MCHC RDW Plt Count MPV Immature Gran % (Auto) Neut % (Auto) Lymph % (Auto) [place] % (Auto) Eos % (Auto) Baso % (Auto) Lymph # (Auto) [place] # (Auto) Eos # (Auto) Baso # (Auto) Abs Immat Gran (auto) Absolute Neuts (auto) Absolute Nucleated RBC Nucleated RBC % (auto) VBG pH VBG pCO2 VBG pO2 VBG HCO3 VBG O2 Saturation VBG Base Excess Sodium Potassium Chloride Carbon Dioxide Anion Gap BUN Creatinine Estim Creat Clear Calc Estimated GFR POC Glucose 202 H 173 H 155 H Random Glucose Calcium Phosphorus Magnesium Albumin 06/15/22 06/15/22 06/15/22 06:10 06:10 06:15 WBC 3.3 L RBC 3.80 L Hgb 10.5 L Hct 34.0 L MCV 89.5 MCH 27.6 MCHC 30.9 L RDW 14.9 Plt Count 108 L MPV 9.8 Immature Gran % (Auto) 0.0 Neut % (Auto) 37.6 L Lymph % (Auto) 43.0 H [place] % (Auto) 10.0 Eos % (Auto) 8.8 H Baso % (Auto) 0.6 Lymph # (Auto) 1.4 [place] # (Auto) 0.3 Eos # (Auto) 0.3 Baso # (Auto) 0.0 Abs Immat Gran (auto) 0.00 Absolute Neuts (auto) 1.2 L Absolute Nucleated RBC 0.000 Nucleated RBC % (auto) 0.0 VBG pH 7.31 L VBG pCO2 58 VBG pO2 54 VBG HCO3 29 H VBG O2 Saturation 85.0 VBG Base Excess 2.6 Sodium 143 Potassium 4.0 Chloride 111 H Carbon Dioxide 27 Anion Gap 9 L BUN 12 Creatinine 0.84 Estim Creat Clear Calc 78.2 Estimated GFR > 60 POC Glucose Random Glucose 229 H Calcium 7.9 L Phosphorus 2.1 L Magnesium 1.7 Albumin 3.3 L 04/22/23 07:19 WBC RBC Hgb Hct MCV MCH MCHC RDW Plt Count MPV Immature Gran % (Auto) Neut % (Auto) Lymph % (Auto) [place] % (Auto) Eos % (Auto) Baso % (Auto) Lymph # (Auto) [place] # (Auto) Eos # (Auto) Baso # (Auto) Abs Immat Gran (auto) Absolute Neuts (auto) Absolute Nucleated RBC Nucleated RBC % (auto) VBG pH VBG pCO2 VBG pO2 VBG HCO3 VBG O2 Saturation VBG Base Excess Sodium Potassium Chloride Carbon Dioxide Anion Gap BUN Creatinine Estim Creat Clear Calc Estimated GFR POC Glucose 201 H Random Glucose Calcium Phosphorus Magnesium Albumin Progress Note: A&P Assessment and plan (1) Acute hypotension: Status: Acute (2) CHICHI (acute kidney injury): Status: Acute (3) Chronic combined systolic and diastolic CHF (congestive heart failure): Status: Acute (4) NICM (nonischemic cardiomyopathy): Status: Acute (5) Chronic diarrhea: Status: Acute (6) Presence of CardioMEMS HF system: Status: Acute Plan High sensitivity troponin unremarkable. Cardiac BNP is 66 and 61, well within normal limits. Echocardiogram from last week from primary fishing manager-LVEF about 25%. Severe global hypokinesis with regional variation. Mild mitral regurgitation. Mild pulmonary hypertension. Possible PFO. CardioMEMS system was interrogated. That shows PA diastolic of 21 mm Hg. However, there is a 12 mm gradient between PA diastolic and wedge in her case. Hence it is possible that her blood pressure dropped with increase in dosing of Entresto/Coreg leading to hypotension/renal failure with a background of chronic diarrhea. She is off pressors and back in the floor. Creatinine is normalized. She still has some chest burning with activity and not clear why etiology. If does not resolve with gentle oral hydration, then may need diagnostic catheterization but per prior documentation this was fairly unremarkable in 2020. D[address] Naidu. Time Spent With Patient Time: Total time managing care of this patient today 50 minutes. This includes time spent in review of chart, laboratory data, imaging studies, review of telemetry, counseling patient, discussion with hospitalist, RN, documentation, coordination of care. Progress Note: Quality Stroke Does the patient have a stroke diagnosis?: No Procedures Date of Service Date of Service: 06/15/22
[2022-06-15 11:18] LABS: Glucose, Whole Blood 180 mg/dL (60-115)
[2022-06-15] MEDS: Albuterol/Iprat 2.5/0.5MG 3 ML AMPUL.NEB INHALE ×2 (12:04→13:58)
[2022-06-15 16:09] LABS: Glucose, Whole Blood 242 mg/dL (60-115)
[2022-06-15 19:56] LABS: Glucose, Whole Blood 130 mg/dL (60-115)
[2022-06-15] MEDS: Zolpidem Tartrate 5 MG TABLET PO (21:11)
[2022-06-15] MEDS: diphenhydrAMINE HCL 25 MG CAPSULE PO (23:46)
[2022-06-16] MEDS: Butalb/Acetamin/Caff 50/325/40 TABLET 1 TAB PO ×2 (03:28→09:04)
[2022-06-16 03:30] VITALS: BP 110/58; PULSE 93; RESP 18; TEMP 36.4; O2SAT 93
[2022-06-16 06:00] VITALS: BMI 35.0
[2022-06-16] MEDS: Heparin Sodium,Porcine 5,000 UNIT/ML VIAL 5000 UNIT SUBCUT (06:12)
[2022-06-16 07:10] LABS: Glucose, Whole Blood 138 mg/dL (60-115)
[2022-06-16 07:12] VITALS: BP 98/51; PULSE 94; RESP 20; TEMP 36.9; O2SAT 96
[2022-06-16 08:24] LABS: MANUAL DIFF FLAG NO
[2022-06-16 08:27] LABS: Basophils Percent Auto 0.3 % (0-2); Eosinophils Absolute Auto 0.4 X10*3/uL (0.0-0.4); Eosinophils Percent Auto 11.1 % (0-4); Hematocrit 35.7 % (37.0-47.0); Hemoglobin 10.9 g/dl (12.0-16.0); Imm Gran Abs Auto 0.01 X10*3/uL (0.00-0.03); Imm Gran Pct Auto 0.3 % (0.0-0.4); Lymphocytes Absolute Auto 1.3 X10*3/uL (1.2-4.9); Lymphocytes Percent Auto 41.5 % (20-40); Mean Corpuscular HGB Conc 30.5 g/dl (31.0-35.0); Mean Corpuscular Volume 88.6 fL (80.0-98.0); Monocytes Absolute Auto 0.3 X10*3/uL (0.1-1.2); Monocytes Percent Auto 9.9 % (2-11); Neutrophils Absolute Auto 1.2 x10*3/uL (2.0-8.3); Neutrophils Percent Auto 36.9 % (45-73); Platelet Count 106 X10*3/uL (160-400); Red Blood Count 4.03 X10*6/uL (4.20-5.50); Red Cell Distribution Width 14.8 % (11.0-16.0); White Blood Count 3.2 X10*3/uL (4.8-10.8)
[2022-06-16] MEDS: Albuterol/Iprat 2.5/0.5MG 3 ML AMPUL.NEB INHALE ×2 (08:42→11:30)
[2022-06-16 08:43] VITALS: PULSE 92; RESP 18; O2SAT 95
[2022-06-16 08:47] LABS: Alanine Aminotransferase 37 U/L (0-31); Albumin Level 3.3 g/dL (3.5-5.0); Alkaline Phosphatase 79 U/L (39-117); Anion Gap 10 (12-20); Aspartate Amino Transferase 17 U/L (5-31); Bilirubin Total 0.2 mg/dL (0.0-1.0); Blood Urea Nitrogen 8 mg/dL (9-16); Calcium 7.9 mg/dL (8.4-10.2); Carbon Dioxide 28 mmol/L (22-29); Chloride 109 mmol/L (96-108); Creatinine Clr Calc Pharmacy 82.8; Estimated Glomerular Filt Rate > 60; Glucose Random 133 mg/dL (60-115); Potassium 3.8 mmol/L (3.3-5.1); Sodium 143 mmol/L (135-145); Total Protein 5.9 g/dL (6.5-8.0)
[2022-06-16] MEDS: ALPRAZolam 0.5 MG TABLET PO (09:04)
[2022-06-16] MEDS: Loperamide HCl 2 MG CAPSULE 4 MG PO (09:04)
[2022-06-16] MEDS: ondansetron HCL 4 MG/2 ML VIAL IVPUSH (09:04)
[2022-06-16] MEDS: Insulin Glargine,Hum.rec.anlog 100 UNIT/ML 10 ML VIAL 20 UNIT SUBCUT (09:05)
--- NOTE | 2022-06-16 10:58 | P.PNCA_ITS ---
Subjective Subjective Date of Service: 06/16/22 Interval history: She states that she still gets some burning in the chest/discomfort when she walks to the bathroom. Review of Systems Review of Systems Yes all other systems are reviewed and are negative Constitutional: Reports as per HPI and Reports no additional constitutional complaints Eyes: Reports as per HPI and Denies no additional eye complaints Denies system reviewed and no additional complaints, except as documented and Reports as per HPI Cardiovascular: Reports as per HPI, Reports no additional cardiovascular complaints, Denies acrocyanosis, Denies cool extremities, Reports chest pain, Denies leg edema, Denies lightheadedness, Denies palpitations and Reports dyspnea Respiratory: Reports as per HPI, Denies no additional respiratory complaints and Reports dyspnea Gastrointestinal: Reports as per HPI and Denies no additional gastrointestinal complaints Genitourinary: Reports as per HPI Musculoskeletal: Reports no additional musculoskeletal complaints and Reports as per HPI Skin/Breast: Reports system reviewed and no additional complaints, except as docu Reports system reviewed and no additional complaints, except as documented and Reports as per HPI Psychiatric: Reports no additional psychiatric complaints and Reports as per HPI Endocrine: Reports no additional endocrine complaints, Reports as per HPI and D enies palpitations Hematologic/Lymphatic: Reports no additional hematologic/lymphatic complaints and Reports as per HPI Allergic/Immunologic: Reports no additional allergic/immunologic complaints and Reports as per HPI Physical Exam Vital Signs: Last Vital Signs Temp 98.5 F 06/16/22 07:12 Pulse 92 06/16/22 08:43 Resp 18 06/16/22 08:43 BP 98/51 L 06/16/22 07:12 Pulse Ox 96 06/16/22 07:12 O2 Del Method Nasal Cannula 06/16/22 07:12 O2 Flow Rate 2 06/16/22 07:12 Oxygen Flow Rate 2 06/13/22 17:30 BMI result Body Mass Index 35.0 Const General: comfortable and no acute distress Orientation/consciousness: patient oriented x3 HEENT Other: Unremarkable Head: Yes normal to inspection Neck Neck: Yes normal visual inspection Chest Chest palpation & inspection: normal inspection of the chest Resp Auscultation: crackles and rhonchi Cardio Palpation: normal PMI Heart sounds: S1 normal heart sound present, S2 normal heart sound present, no gallops, no murmurs and no rubs GI Palpation (GI): Soft to palpation Back/Spine/Pelvis Other: unremarkable Skin General skin exam: no rashes or lesions noted Neuro General: patient oriented x3 Extrem General: Yes normal to inspection Psych Mental Status: mental status grossly normal Objective Labs and Meds 06/16/22 07:55 06/16/22 07:55 Lab results: Laboratory Results - last 24 hr 06/15/22 06/15/22 06/15/22 11:14 15:59 19:52 WBC RBC Hgb Hct MCV MCH MCHC RDW Plt Count MPV Immature Gran % (Auto) Neut % (Auto) Lymph % (Auto) [place] % (Auto) Eos % (Auto) Baso % (Auto) Lymph # (Auto) [place] # (Auto) Eos # (Auto) Baso # (Auto) Abs Immat Gran (auto) Absolute Neuts (auto) Absolute Nucleated RBC Nucleated RBC % (auto) Sodium Potassium Chloride Carbon Dioxide Anion Gap BUN Creatinine Estim Creat Clear Calc Estimated GFR POC Glucose 180 H 242 H 130 H Random Glucose Calcium Total Bilirubin AST ALT Alkaline Phosphatase Total Protein Albumin 06/16/22 06/16/22 06/16/22 07:00 07:55 07:55 WBC 3.2 L RBC 4.03 L Hgb 10.9 L Hct 35.7 L MCV 88.6 MCH 27.0 MCHC 30.5 L RDW 14.8 Plt Count 106 L MPV 10.0 Immature Gran % (Auto) 0.3 Neut % (Auto) 36.9 L Lymph % (Auto) 41.[address] [place] % (Auto) 9.9 Eos % (Auto) 11.1 H Baso % (Auto) 0.3 Lymph # (Auto) 1.3 [place] # (Auto) 0.3 Eos # (Auto) 0.4 Baso # (Auto) 0.0 Abs Immat Gran (auto) 0.01 Absolute Neuts (auto) 1.2 L Absolute Nucleated RBC 0.000 Nucleated RBC % (auto) 0.0 Sodium 143 Potassium 3.8 Chloride 109 H Carbon Dioxide 28 Anion Gap 10 L BUN 8 L Creatinine 0.79 Estim Creat Clear Calc 82.8 Estimated GFR > 60 POC Glucose 138 H Random Glucose 133 H Calcium 7.9 L Total Bilirubin 0.2 AST 17 ALT 37 H Alkaline Phosphatase 79 Total Protein 5.9 L Albumin 3.3 L Imaging Radiologist's impression: Impressions Chest X-Ray 06/16/22 09:32 IMPRESSION: 1. Mild hypoinflation of the lungs with streaky bibasilar opacities which could represent atelectasis versus early infiltrates. 2. Patchy right apical opacity which could represent atelectasis versus early infiltrates. Progress Note: A&P Assessment and plan (1) Acute hypotension: Status: Acute (2) CHICHI (acute kidney injury): Status: Acute (3) Chronic combined systolic and diastolic CHF (congestive heart failure): Status: Acute (4) NICM (nonischemic cardiomyopathy): Status: Acute (5) Chronic diarrhea: Status: Acute (6) Presence of CardioMEMS HF system: Status: Acute (7) Chest discomfort: Status: Acute Plan High sensitivity troponin unremarkable. Cardiac BNP is 66 and 61, well within normal limits. Echocardiogram from last week from primary professional caster-LVEF about 25%. Severe global hypokinesis with regional variation. Mild mitral regurgitation. Mild pulmonary hypertension. Possible PFO. CardioMEMS system was interrogated. That shows PA diastolic of 21 mm Hg. However, there is a 12 mm gradient between PA diastolic and wedge in her case. Hence it is possible that her blood pressure dropped with increase in dosing of Entresto/Coreg leading to hypotension/renal failure with a background of chronic diarrhea. She had stated that she was having chest pain few days ago that went upper jaw. She still has some chest burning when she walks to the bathroom. Etiology for this not clear. Even in office note from few days ago, there is description of 6/10 left-sided chest pain with radiation to the neck and jaw. Hence we will plan on transferring her to [facility] for diagnostic catheterization. Discussed with patient she is agreeable. Discussed with Dr. Naidu. For medications, can resume Lasix but hold the others. Time Spent With Patient Time: Total time managing care of this patient today 50 minutes. This includes time spent in review of chart, laboratory data, imaging studies, review of telemetry, counseling patient, discussion with hospitalist, RN, arranging patient transfer, documentation, coordination of care. Progress Note: Quality Stroke Does the patient have a stroke diagnosis?: No Procedures Date of Service Date of Service: 06/16/22
[2022-06-16 10:59] LABS: Glucose, Whole Blood 186 mg/dL (60-115)
--- NOTE | 2022-06-16 11:17 | PM.DS ---
DS: Providers Provider Date of Service: 06/16/22 Date of admission: 06/13/22 22:03 Date of discharge: 06/16/22 Primary care physician: Melinda Shin MD Consults: 06/14/22 00:27 Consult to Cardiology Stat Consulting Provider[place] [facility] Reason for consultation: hypotension DS: Diagnosis Discharge Diagnosis (1) Acute hypotension: Status: Resolved (2) CHICHI (acute kidney injury): Status: Resolved (3) Chronic combined systolic and diastolic CHF (congestive heart failure): Status: Acute (4) NICM (nonischemic cardiomyopathy): Status: Acute (5) Chronic diarrhea: Status: Acute (6) Presence of CardioMEMS HF system: Status: Acute (7) Chest discomfort: Status: Acute DS: Summary Hospital Course Hospital Course: Ms. Ricardo is a very pleasant 66-year-old female with a past medical history of? CAD with PCI in 2004, CHF, ICD for cardiomyopathy, ventricular tachycardia, CKD, COPD, [place] on CPAP at , home oxygen 2-3 L, diabetes, diverticulitis, hydronephrosis who presented to the emergency room this evening via ambulance from [facility] with a complaint of bilateral upper back pain, generalized weakness and malaise, nausea, dysuria, and suprapubic discomfort worse with urination.? She was recently admitted to [facility] on 05/21/2022 to 05/24/2022 for acute CHF and COPD exacerbation.? She did have an echocardiogram? while admitted that showed severely reduced left ventricular systolic function.? Left ventricular ejection fraction 20%.? Severe global hypokinesis.? Abnormal septal motion.? Likely grade 1 diastolic dysfunction.? Normal right ventricular size and function.? Normal left atrial size.? Right atrial pressure estimated to be about 8 mg of mercury.? No hemodynamically significant valve disease. On 06/02/2022, she experienced pressure and burning in her upper abdomen radiating up through her chest and into her neck that she said felt like when she had had a heart attack in the past. She did not seek medical treatment because her symptoms resolved with a dose of Mylanta and 1 nitro tablet. She has been experiencing? an aching and stiffness to her upper shoulders and neck that she? perceives as muscular and attributes to the pillow used in conjunction with the CardioMEMS. She also notes shortness of breath, weakness and sees ?black floaters? with activity. The patient reports recent increases to both her Entresto and carvedilol. She stated that in the past she was unable to tolerate the higher dose of Entresto. ?Additionally, she has been taking her torsemide as directed over the last few weeks but had only been taking it sporadically before that. She did note that all of the symptoms she is having began shortly after the dose increases.On arrival to the emergency room, the patient's blood pressure was 85/42, heart rate 89, temp 98.3, urine negative for leukocytes and nitrite. Hospital Course Admitted to ICU for pressor support. Over the next 48 hours pressors were able to be weaned and she was discharged to telemetry. Her Entresto and carvedilol have been held. She was seen in consultation by Cardiology and voiced that when she is ambulating to the bathroom she has chest pressure and burning. Troponins have remained negative. Discussed with Cardiology. .. Recommend transfer to [facility] for diagnostic cardiac catheterization. On the day of discharge, patient developed some expiratory wheezes; given backdrop cardiology recommended restarting IV Lasix 20 q.12 hours. Further recommendations as per receiving team and forthcoming data Time Spent with Patient Time attestation: Total time managing care of this patient today ____ minutes. Discharge coordination time: Greater than 30 minutes Quality: Safe Use of Opioids Does Pt have an Active Cancer Diagnosis on the Problem List?: No Quality: Stroke Does the patient have a stroke diagnosis?: No Physical Exam Vital Signs: Vital Signs: Last Vital Signs Temp 98.5 F 06/16/22 07:12 Pulse 92 06/16/22 08:43 Resp 18 06/16/22 08:43 BP 98/51 L 06/16/22 07:12 Pulse Ox 96 06/16/22 07:12 O2 Del Method Nasal Cannula 06/16/22 07:12 O2 Flow Rate 2 06/16/22 07:12 Oxygen Flow Rate 2 06/13/22 17:30 BMI result Body Mass Index 35.0 Const: Other: No acute distress Resp: Other: Clear to auscultation bilaterally no rales rhonchi or wheezes Cardio: Other: No S4; positive S1-S2; no S3 murmurs rubs or gallops GI: Other: Soft nontender nondistended normoactive bowel sounds Extrem: Other: No edema bilaterally DS: Data Data Completed and Pending Labs on day of discharge: Laboratory Results - last 24 hr 06/15/22 06/15/22 06/15/22 11:14 15:59 19:52 WBC RBC Hgb Hct MCV MCH MCHC RDW Plt Count MPV Immature Gran % (Auto) Neut % (Auto) Lymph % (Auto) [place] % (Auto) Eos % (Auto) Baso % (Auto) Lymph # (Auto) [place] # (Auto) Eos # (Auto) Baso # (Auto) Abs Immat Gran (auto) Absolute Neuts (auto) Absolute Nucleated RBC Nucleated RBC % (auto) Sodium Potassium Chloride Carbon Dioxide Anion Gap BUN Creatinine Estim Creat Clear Calc Estimated GFR POC Glucose 180 H 242 H 130 H Random Glucose Calcium Total Bilirubin AST ALT Alkaline Phosphatase Total Protein Albumin 06/16/22 06/16/22 06/16/22 07:00 07:55 07:55 WBC 3.2 L RBC 4.03 L Hgb 10.9 L Hct 35.7 L MCV 88.6 MCH 27.0 MCHC 30.5 L RDW 14.8 Plt Count 106 L MPV 10.0 Immature Gran % (Auto) 0.3 Neut % (Auto) 36.9 L Lymph % (Auto) 41.5 H [place] % (Auto) 9.9 Eos % (Auto) 11.1 H Baso % (Auto) 0.3 Lymph # (Auto) 1.3 [place] # (Auto) 0.3 Eos # (Auto) 0.4 Baso # (Auto) 0.0 Abs Immat Gran (auto) 0.01 Absolute Neuts (auto) 1.2 L Absolute Nucleated RBC 0.000 Nucleated RBC % (auto) 0.0 Sodium 143 Potassium 3.8 Chloride 109 H Carbon Dioxide 28 Anion Gap 10 L BUN 8 L Creatinine 0.79 Estim Creat Clear Calc 82.8 Estimated GFR > 60 POC Glucose 138 H Random Glucose 133 H Calcium 7.9 L Total Bilirubin 0.2 AST 17 ALT 37 H Alkaline Phosphatase 79 Total Protein 5.9 L Albumin 3.3 L 06/16/22 10:51 WBC RBC Hgb Hct MCV MCH MCHC RDW Plt Count MPV Immature Gran % (Auto) Neut % (Auto) Lymph % (Auto) [place] % (Auto) Eos % (Auto) Baso % (Auto) Lymph # (Auto) [place] # (Auto) Eos # (Auto) Baso # (Auto) Abs Immat Gran (auto) Absolute Neuts (auto) Absolute Nucleated RBC Nucleated RBC % (auto) Sodium Potassium Chloride Carbon Dioxide Anion Gap BUN Creatinine Estim Creat Clear Calc Estimated GFR POC Glucose 186 H Random Glucose Calcium Total Bilirubin AST ALT Alkaline Phosphatase Total Protein Albumin Preliminary micro results at discharge 06/13/22 18:21 Blood Culture - Preliminary Blood - Venous No growth after 48 hours. 06/13/22 18:21 Blood Culture - Preliminary Blood - Venous No growth after 48 hours. Discharge Plan Discharge Anticipated Discharge Date/Time: 06/16/22 07:21 Patient Disposition: Xfer Acute Care Hospital Discharge Diagnosis: Acute hypotension Referrals: [facility] [Outside] - 1 Week Melinda Shin MD [Primary Care Provider] - 1 Week Discharge Medications: New [id number] 50-325-40 mg Tablet 1 tab PO Q4H PRN (Reason: Headache) Qty: 10 0RF insulin glargine [Lantus U-100 Insulin] 100 unit/mL Solution 20 unit subcut DAILY Qty: 10 0RF oxycodone 5 mg Tablet 5 mg PO Q4H PRN (Reason: Pain, Moderate (Pain Scale 4-6) Qty: 10 0RF Rx Instructions: Partial Fill upon patient request. insulin lispro [Humalog U-100 Insulin] 100 unit/mL Solution See Protocol subcut QIDACHS Qty: 10 0RF Protocol: Insulin Correction Scale Less than or equal to 110 ---- Give (units): 0 111 to 150 Give (units): 0 151 to 200 Give (units): 2 201 to 250 Give (units): 4 251 to 300 Give (units): 6 301 to 350 Give (units): 8 Greater than 350 Give (units): 10 Call MD if Blood Glucose > : 350 Continued nitroglycerin 0.3 mg Tablet, Sublingual 0.3 mg SUBLINGUAL Q5M PRN (Reason: Chest Pain) Rx Instructions: do not exceed 3 doses per episode loperamide 2 mg Tablet 2 mg PO Q3H PRN (Reason: Diarrhea) Rx Instructions: administer after each loose stool until symptoms controlled; do not exceed 8 mg per 24 hrs zolpidem 5 mg Tablet 10 mg PO BEDTIME albuterol sulfate 2.5 mg /3 mL (0.083 %) Solution For Nebulization 2.5 mg INHALATION Q4H PRN (Reason: Shortness Of Breath Or Wheezing) alprazolam 0.5 mg Tablet 0.5 mg PO TID Discontinued insulin glargine [Lantus U-100 Insulin] 100 unit/mL Solution 30 unit SUBCUT QPM carvedilol 3.125 mg Tablet 3.125 mg PO BID Rx Instructions: must administer with a meal/food Humalog U-100 Insulin 100 unit/mL Cartridge 10 unit SUBCUT TID melatonin 10 mg Tablet 20 mg PO BEDTIME Entresto 97-103 mg Tablet 1 tab PO BID Diet: Advance to usual diet Activity on Discharge: As tolerated Stand Alone Forms: Patient Portal Discharge page Care Plan Goals: Elective cardiac catheterization Health Concerns: Continue all medicines as ordered Plan of Treatment: As per receiving team Assessment: See discharge summary Discharge Date/Time: 06/16/22 14:30
[2022-06-16 11:30] VITALS: BP 112/57; PULSE 90; RESP 20; TEMP 36.4; O2SAT 100
[2022-06-16 11:31] VITALS: PULSE 94; RESP 18; O2SAT 96
[2022-06-16] MEDS: Furosemide 20 MG/2 ML VIAL IVPUSH (11:33)
[2022-06-16] MEDS: Sodium Chloride 0.65 % Nasal 44 ML SPRBTL 1 SPRAY NOSTRIL-B (11:34)
[2022-06-16] MEDS: oxyCODONE HCl Immed Release 5 MG TABLET PO (11:34)
[2022-06-16] MEDS: Insulin Lispro 100 UNIT/ML 3 ML VIAL SUBCUT (11:37)
[2022-06-16 12:24] LABS: COVID-19 Test Negative (Negative); IDNOW Serial# 08D9AD1C
[2022-06-16] MEDS: diphenhydrAMINE HCL 25 MG CAPSULE PO (12:41)
--- NOTE | 2022-06-16 14:39 | PC.NURSE ---
Pt alert and oriented, VSS, c/o burning to chest with ambulation, PRN oxycodone admin. Pt transported to [facility] for Cardiac Cath. @ 1430. Report given to KAYCEE Neal @ [facility] .
--- NOTE | 2022-06-16 15:14 | MHC.CM.PN ---
Patient was transferred/dc'd to [facility].
== END 2022-06-16 14:30 | disposition short-term general hospital (02) | DRG 392 ==
LOC: HO.ED 22:20 → HO.EDOVER 22:25 → HO.ICU 23:09 → HO.IMC 06-14 12:33
PROVIDERS: Internal Medicine Pulmonary Disease; Admitting Provider Nurse Practitioner Family; Emergency Provider Emergency Medicine; PCP Internal Medicine; Visit Provider Hospitalist
DX: K52.9 Noninfective gastroenteritis and colitis, unspecified (principal); N17.9 Acute kidney failure, unspecified; I50.42 Chronic combined systolic (congestive) and diastolic (congestive) heart failure; Z95.811 Presence of heart assist device; I42.8 Other cardiomyopathies; Q21.12 Patent foramen ovale; J96.11 Chronic respiratory failure with hypoxia; Z20.822 Contact with and (suspected) exposure to COVID-19; I25.10 Atherosclerotic heart disease of native coronary artery without angina pectoris; I34.0 Nonrheumatic mitral (valve) insufficiency; E86.0 Dehydration; I27.20 Pulmonary hypertension, unspecified; J44.9 Chronic obstructive pulmonary disease, unspecified; E11.22 Type 2 diabetes mellitus with diabetic chronic kidney disease; N18.9 Chronic kidney disease, unspecified; I95.2 Hypotension due to drugs; T44.7X5A Adverse effect of beta-adrenoreceptor antagonists, initial encounter; I50.82 Biventricular heart failure; Z99.81 Dependence on supplemental oxygen; G47.33 Obstructive sleep apnea (adult) (pediatric); Z91.041 Radiographic dye allergy status; Z88.5 Allergy status to narcotic agent; Z88.6 Allergy status to analgesic agent; Z79.4 Long term (current) use of insulin; Z79.899 Other long term (current) drug therapy
CPT/HCPCS: 36415; 71045; 74176; 80048; 80053; 80076; 80307; 81003; 82040; 82803; 82947; 83605; 83690; 83735; 83880; 84100; 84484; 85025; 85610; 87040; 87635; 93005; 94660; 99285; J0456; J0696; J1643; J1940; J2405; J3475; P9047

== ENCOUNTER → 2022-07-25 19:30 | Outpatient (REF) | payer MEDICARE, MEDICAID, SELFPAY | LOC: HO.SL 19:30 | PROVIDERS: PCP Internal Medicine; Visit Provider Internal Medicine | DX: G47.33 Obstructive sleep apnea (adult) (pediatric) (principal) | CPT/HCPCS: 95810 ==

== ENCOUNTER 2022-07-26 07:18 | Emergency (ER) | payer MEDICARE, MEDICAID, SELFPAY ==
--- NOTE | ~2022-07-26 | XR_ITS ---
EXAMINATION: XR CHEST CLINICAL INFORMATION: Shortness of breath with PE COMPARISON: June 16, 2022 and July 22, 2014 TECHNIQUE: AP portable view of the chest was obtained. FINDINGS: Right internal jugular port catheter in place with tip in the region of the caval atrial junction. AICD in place. Left atrial occlusion device present. There is again noted to be region of patchy pleural parenchymal disease in the right apex as well as region of ill-defined density at the right lung base which is more prominent than on prior study. There is some indistinctness of the lung bases as well as partial obscuration of the left hemidiaphragm consistent with region of parenchymal disease. No pneumothorax is evident. The cardiopericardial silhouette is enlarged. No evidence of pulmonary edema. XR/XR chest 1V IMPRESSION: Bibasilar airspace disease which may be related to atelectasis or pneumonitis. Region of the right apical disease unchanged from June 16, 2022 and not seen on prior study of July 22, 2014. Underlying mass versus chronic lung disease or infectious process within differential diagnosis. Follow-up to resolution is recommended. If there is persistence of disease would consider CT scan of the chest.
[2022-07-26 07:26] VITALS: BP 107/69; PULSE 77; PULSE 82; RESP 18; TEMP 37; O2SAT 98; O2SAT 99; BMI 37.4
--- NOTE | 2022-07-26 07:27 | ED.SOB ---
HPI - SOB/Dyspnea General Chief Complaint: Dyspnea Stated Complaint: sob, persistent cough, weakness, per ems Time Seen by Provider: 07/26/22 07:27 Source: patient and EMS Mode of arrival: EMS Limitations: no limitations History of Present Illness HPI Narrative: Patient with 2 weeks of known PE in left lung. She has DM, COPD, HTN and renal failure on eliquist. Now with SOB for 3 days, no fever, wheezing. MD elicited complaint: shortness of breath and cough Pertinent past history: COPD, congestive heart failure, diabetes, pneumonia and PE Onset (ago): day(s) Context: recent illness Timing: constant Severity: moderate Known history of: COPD and PE Related Data Home Medications Medication Instructions Recorded Confirmed albuterol sulfate 2.5 mg/3 mL 2.5 mg inhalation Q4H PRN 06/13/22 06/13/22 (0.083 %) solution for nebulization Shortness Of Breath Or Wheezing alprazolam 0.5 mg tablet 0.5 mg PO TID 06/13/22 06/13/22 loperamide 2 mg tablet 2 mg PO Q3H PRN Diarrhea 06/13/22 06/13/22 nitroglycerin 0.3 mg sublingual 0.3 mg sublingual Q5M PRN Chest 06/13/22 06/13/22 tablet Pain zolpidem 5 mg tablet 10 mg PO BEDTIME 06/13/22 06/13/22 Previous Rx's Medication Instructions Recorded [id number] 1 tab PO Q4H PRN Headache #10 tabs 06/16/22 50 mg-325 mg-40 mg tablet insulin glargine 100 unit/mL 20 unit (0.2 mL) subcut DAILY #10 06/16/22 subcutaneous solution (Lantus mL U-100 Insulin) insulin lispro 100 unit/mL See Protocol subcut QIDACHS #10 mL 06/16/22 subcutaneous solution (Humalog U-100 Insulin) oxycodone 5 mg tablet 5 mg PO Q4H PRN Pain, Moderate 06/16/22 (Pain Scale 4-6 #10 tabs prednisone 20 mg tablet 60 mg PO DAILY #12 tabs 07/26/22 Allergies Allergy/AdvReac Type Severity Reaction Status Date / Time morphine [MORPHINE] Allergy Mild HIVES AT Verified 06/14/22 20:13 INJECTION SITE aspirin [Aspirin] Allergy Unknown HIVES, Verified 06/14/22 20:13 itching, hives benazepril Allergy Unknown Unknown Verified 06/14/22 20:13 codeine [Codeine] Allergy Unknown HIVES, Verified 06/14/22 20:13 itching, hives dexamethasone [From DECADRON] Allergy Unknown HIVES ITCH Verified 06/14/22 20:13 ibuprofen [From Motrin] Allergy Unknown HIVES, Verified 06/14/22 20:13 itching Iodinated Contrast Media Allergy Unknown ANAPHYLAXIS Verified 06/14/22 20:13 [IV Dye, Iodine Containing] levofloxacin [From LEVAQUIN] Allergy Unknown HIVES Verified 06/14/22 20:13 NSAIDS (Non-Steroidal Allergy Unknown HIVES Verified 06/14/22 20:13 Anti-Inflamma [Nsaids] povidone-iodine Allergy Unknown HIVES ITCH Verified 06/14/22 20:13 [From BETADINE] soap [From BETADINE] Allergy Unknown HIVES ITCH Verified 06/14/22 20:13 tramadol Allergy Unknown itching, Verified 06/14/22 20:13 hives decadron Allergy Unknown hives Uncoded 06/14/22 20:13 From Compazine Allergy Unknown HIVES Uncoded 06/14/22 20:13 From Lotensin Allergy Unknown HIVES Uncoded 06/14/22 20:13 From Toradol Allergy Unknown HIVES Uncoded 06/14/22 20:13 From Ultram Allergy Unknown HIVES Uncoded 06/14/22 20:13 IVP dye Allergy Unknown itching, Uncoded 06/14/22 20:13 hives Prochlorperazine Maleate Allergy Unknown oral Uncoded 06/14/22 20:13 itching Review of Systems Review of Systems: Yes all other systems are reviewed and are negative Cardiovascular: Cardiovascular: Reports dyspnea Respiratory: Respiratory: Reports dyspnea Neurologic: Denies Sensory deficit (Neuro) [facility] Past Medical History Medical History CHF (congestive heart failure) Chronic kidney disease COPD (chronic obstructive pulmonary disease) Diabetes Diverticulitis Hydronephrosis NICM (nonischemic cardiomyopathy) Presence of CardioMEMS HF system Family History Family History Mother CAD (coronary artery disease) Social History Social History Household Members: None Housing: House Do you presently have visiting nurse or other home services: Yes Alcohol intake: never Patient Tobacco Use Status: Never used Tobacco Smoked in Last 30 Days: No Use of substances other than those prescribed or required for medical reasons: No Advance Directives: Yes Advance Directives on File: Yes Advance Directives Date on File: 06/17/22 service: No Current occupational status: disabled Physical Exam Vital Signs: Vital Signs: Last Vital Signs Temp 98.6 F 07/26/22 07:26 Pulse 93 07/26/22 09:53 Resp 21 H 07/26/22 09:53 BP 104/54 L 07/26/22 09:23 Pulse Ox 98 07/26/22 09:23 O2 Del Method Nasal Cannula 07/26/22 09:23 O2 Flow Rate 2 07/26/22 09:23 Oxygen Flow Rate 1 07/26/22 07:26 BMI result Body Mass Index 37.4 Const: Other: obese female short of breath Orientation/consciousness: oriented to person and patient oriented x3 Limitations: no limitations HEENT: Head: Yes normal to inspection Ears: external ears normal General nose exam: Normal external nose present Mouth: Normal oral and palatal mucosa present and oropharynx normal Throat: Yes posterior oropharynx normal Eyes: General: appearance normal, both eyes and all related structures Neck: Other: supple Neck: Yes normal visual inspection Chest: Chest palpation & inspection: normal inspection of the chest Resp: Other: diffuse wheezing Cardio: Jugular venous distension: no JVD Rate: regular rate Rhythm: regular rhythm Heart sounds: S1 normal heart sound present and S2 normal heart sound present GI: Inspection: Yes normal to inspection Palpation (GI): Soft to palpation, nontender and No hepatosplenomegaly present Auscultation: normal bowel sounds : General: Yes no CVA tenderness Back/Spine/Pelvis: Back: no CVA tenderness Skin: General skin exam: no rashes or lesions noted Neuro: General: oriented to person and patient oriented x3 Cranial nerves: Yes CN's II-XII intact bilaterally Motor exam (neuro): 5/5 motor strength present throughout Sensory Exam: No Sensory deficit (Neuro) Extrem: General: Yes normal to inspection Psych: Appearance: grossly normal Course Reevaluation(s) Reevaluation #1: Breathing and oxygen improved, no evidence of pneumonia will dc home Time: 11:13 Medications Administered Discontinued Medications Generic Name Dose Route Start Last Admin Trade Name Aby PRN Reason Stop Dose Admin Acetaminophen 975 mg 07/26/22 08:33 07/26/22 08:50 Acetaminophen 325 Mg Tablet PO 07/26/22 08:34 975 mg ONCE ONE Administration Albuterol Sulfate 5 mg 07/26/22 09:44 07/26/22 09:51 Albuterol Sulfate (0.083%) 2.5 Mg/3 Ml Vial.Neb INHALE 07/26/22 09:45 5 mg ONCE ONE Administration Albuterol/Ipratropium 3 ml 07/26/22 07:34 07/26/22 08:45 Albuterol/Iprat 2.5/0.5mg 3 Ml Ampul.Neb INHALE 07/26/22 07:35 3 ml ONCE ONE Administration Furosemide 20 mg 07/26/22 09:12 07/26/22 09:36 Furosemide 20 Mg/2 Ml Vial IVPUSH 07/26/22 09:13 20 mg ONCE ONE Administration Protocol Methylprednisolone Sodium Succinate 125 mg 07/26/22 07:35 07/26/22 08:31 Methylprednisolone Sod Succ 125 Mg/2 Ml Vial IVPUSH 07/26/22 07:36 125 mg ONCE ONE Administration Medical Decision Making Differential Diagnosis Differential Diagnoses: The differential diagnosis associated with the presentation includes (COPD, chf, pneumonia, worsening PE) Admission/Observation Consideration of admission/observation: Escalation of care including admission/observation considered (in this chronically ill 66 yo female with COPD, CAD, PE and DM admission was considered upon arrival) Lab Data MDM Lab Attestation statement: I reviewed the patient's lab results. 07/26/22 08:13 07/26/22 08:14 Labs: Lab Results 07/26/22 07/26/22 07/26/22 Range/Units 08:13 08:13 08:14 WBC 6.2 (4.8-10.8) X10*3/uL RBC 4.25 (4.20-5.50) X10*6/uL Hgb 11.6 L (12.0-16.0) g/dl Hct 38.0 (37.0-47.0) % MCV 89.4 (80.0-98.0) fL MCH 27.3 (27.0-33.0) pg MCHC 30.5 L (31.0-35.0) g/dl RDW 14.6 (11.0-16.0) % Plt Count 154 L D (160-400) X10*3/uL MPV 9.2 L (9.4-12.3) fL Immature Gran % (Auto) 0.5 H (0.0-0.4) % Neut % (Auto) 65.7 (45-73) % Lymph % (Auto) 21.2 (20-40) % Eddy % (Auto) 7.1 (2-11) % Eos % (Auto) 5.3 H (0-4) % Baso % (Auto) 0.2 (0-2) % Lymph # (Auto) 1.3 (1.2-4.9) X10*3/uL Eddy # (Auto) 0.4 (0.1-1.2) X10*3/uL Eos # (Auto) 0.3 (0.0-0.4) X10*3/uL Baso # (Auto) 0.0 (0.0-0.2) X10*3/uL Abs Immat Gran (auto) 0.03 (0.00-0.03) X10*3/uL Absolute Neuts (auto) 4.1 (2.0-8.3) x10*3/uL Absolute Nucleated RBC 0.000 (0.0-0.012) X10*3/uL Nucleated RBC % (auto) 0.0 (0.0-0.2) /100WBC Sodium 141 (135-145) mmol/L Potassium 3.4 (3.3-5.1) mmol/L Chloride 100 (96-108) mmol/L Carbon Dioxide 32 H (22-29) mmol/L Anion Gap 12 (12-20) BUN 7 L (9-16) mg/dL Creatinine 0.86 (0.5-1.4) mg/dL Estim Creat Clear Calc 76.2 Estimated GFR > 60 Random Glucose 281 H (60-115) mg/dL Calcium 8.3 L (8.4-10.2) mg/dL Troponin I High Sens 6.5 D (<3.5-17.0) ng/L B-Natriuretic Peptide (<100) pg/mL 07/26/22 Range/Units 08:14 WBC (4.8-10.8) X10*3/uL RBC (4.20-5.50) X10*6/uL Hgb (12.0-16.0) g/dl Hct (37.0-47.0) % MCV (80.0-98.0) fL MCH (27.0-33.0) pg MCHC (31.0-35.0) g/dl RDW (11.0-16.0) % Plt Count (160-400) X10*3/uL MPV (9.4-12.3) fL Immature Gran % (Auto) (0.0-0.4) % Neut % (Auto) (45-73) % Lymph % (Auto) (20-40) % Eddy % (Auto) (2-11) % Eos % (Auto) (0-4) % Baso % (Auto) (0-2) % Lymph # (Auto) (1.2-4.9) X10*3/uL Eddy # (Auto) (0.1-1.2) X10*3/uL Eos # (Auto) (0.0-0.4) X10*3/uL Baso # (Auto) (0.0-0.2) X10*3/uL Abs Immat Gran (auto) (0.00-0.03) X10*3/uL Absolute Neuts (auto) (2.0-8.3) x10*3/uL Absolute Nucleated RBC (0.0-0.012) X10*3/uL Nucleated RBC % (auto) (0.0-0.2) /100WBC Sodium (135-145) mmol/L Potassium (3.3-5.1) mmol/L Chloride (96-108) mmol/L Carbon Dioxide (22-29) mmol/L Anion Gap (12-20) BUN (9-16) mg/dL Creatinine (0.5-1.4) mg/dL Estim Creat Clear Calc Estimated GFR Random Glucose (60-115) mg/dL Calcium (8.4-10.2) mg/dL Troponin I High Sens (<3.5-17.0) ng/L B-Natriuretic Peptide 300 H (<100) pg/mL Independent Interpretation I performed an independent interpretation of an: EKG (sinus [address] or twave changes) and Plain X-Ray (chronic changes) Tests considered The following testing was considered but not selected: I considered obtaining another Chest CTA but patient is taking her eliquist and is not hypoxic, her symptoms are mostly wheezing Chronic Conditions Patient?s care impacted by: Diabetes and Other (COPD and PE) Discharge Plan Discharge Clinical Impression: Acute exacerbation of chronic obstructive airways disease Patient Disposition: Home, Self-Care Instructions: COPD (Chronic Obstructive Pulmonary Disease) (ED) Prescriptions: New prednisone 20 mg tablet 60 mg PO DAILY Qty: 12 0RF No Action nitroglycerin 0.3 mg Tablet, Sublingual 0.3 mg SUBLINGUAL Q5M PRN (Reason: Chest Pain) Rx Instructions: do not exceed 3 doses per episode loperamide 2 mg Tablet 2 mg PO Q3H PRN (Reason: Diarrhea) Rx Instructions: administer after each loose stool until symptoms controlled; do not exceed 8 mg per 24 hrs zolpidem 5 mg Tablet 10 mg PO BEDTIME albuterol sulfate 2.5 mg /3 mL (0.083 %) Solution For Nebulization 2.5 mg INHALATION Q4H PRN (Reason: Shortness Of Breath Or Wheezing) alprazolam 0.5 mg Tablet 0.5 mg PO TID [id number]-[id number] 50-325-40 mg Tablet 1 tab PO Q4H PRN (Reason: Headache) Qty: 10 0RF insulin glargine [Lantus U-100 Insulin] 100 unit/mL Solution 20 unit subcut DAILY Qty: 10 0RF oxycodone 5 mg Tablet 5 mg PO Q4H PRN (Reason: Pain, Moderate (Pain Scale 4-6) Qty: 10 0RF Rx Instructions: Partial Fill upon patient request. insulin lispro [Humalog U-100 Insulin] 100 unit/mL Solution See Protocol subcut QIDACHS Qty: 10 0RF Protocol: Insulin Correction Scale Less than or equal to 110 ---- Give (units): 0 111 to 150 Give (units): 0 151 to 200 Give (units): 2 201 to 250 Give (units): 4 251 to 300 Give (units): 6 301 to 350 Give (units): 8 Greater than 350 Give (units): 10 Call MD if Blood Glucose > : 350 Referrals: Melinda Shin MD [Primary Care Provider] - 3 days
--- NOTE | 2022-07-26 07:32 | ECG_ITS ---
Test Reason : diff breathing,cp Blood Pressure : / mmHG Vent. Rate : 099 BPM Atrial Rate : 099 BPM P-R Int : 178 ms QRS Dur : 092 ms QT Int : 380 ms P-R-T Axes : 051 -41 063 degrees QTc Int : 487 ms Normal sinus rhythm Right atrial enlargement Left axis deviation Pulmonary disease pattern Abnormal ECG When compared with ECG of 13-JUN-2022 22:00, No significant change was found Referred By: Oli Bailey Electronically Signed By:TATA MACIEL MD
[2022-07-26 08:19] LABS: MANUAL DIFF FLAG NO
[2022-07-26 08:23] LABS: Basophils Percent Auto 0.2 % (0-2); Eosinophils Absolute Auto 0.3 X10*3/uL (0.0-0.4); Eosinophils Percent Auto 5.3 % (0-4); Hemoglobin 11.6 g/dl (12.0-16.0); Imm Gran Abs Auto 0.03 X10*3/uL (0.00-0.03); Imm Gran Pct Auto 0.5 % (0.0-0.4); Lymphocytes Absolute Auto 1.3 X10*3/uL (1.2-4.9); Lymphocytes Percent Auto 21.2 % (20-40); Mean Corpuscular HGB Conc 30.5 g/dl (31.0-35.0); Mean Corpuscular Hemoglobin 27.3 pg (27.0-33.0); Mean Corpuscular Volume 89.4 fL (80.0-98.0); Mean Platelet Volume 9.2 fL (9.4-12.3); Monocytes Absolute Auto 0.4 X10*3/uL (0.1-1.2); Monocytes Percent Auto 7.1 % (2-11); Neutrophils Absolute Auto 4.1 x10*3/uL (2.0-8.3); Neutrophils Percent Auto 65.7 % (45-73); Platelet Count 154 X10*3/uL (160-400); Red Blood Count 4.25 X10*6/uL (4.20-5.50); Red Cell Distribution Width 14.6 % (11.0-16.0); White Blood Count 6.2 X10*3/uL (4.8-10.8)
[2022-07-26] MEDS: methylPREDNISolone Sod Succ 125 MG/2 ML VIAL IVPUSH (08:31)
[2022-07-26 08:40] LABS: Anion Gap 12 (12-20); Blood Urea Nitrogen 7 mg/dL (9-16); Calcium 8.3 mg/dL (8.4-10.2); Carbon Dioxide 32 mmol/L (22-29); Chloride 100 mmol/L (96-108); Creatinine Clr Calc Pharmacy 76.2; Estimated Glomerular Filt Rate > 60; Glucose Random 281 mg/dL (60-115); Potassium 3.4 mmol/L (3.3-5.1); Sodium 141 mmol/L (135-145)
[2022-07-26 08:45] LABS: B Type Natriuretic Peptide 300 pg/mL (<100)
[2022-07-26] MEDS: Albuterol/Iprat 2.5/0.5MG 3 ML AMPUL.NEB INHALE (08:45)
[2022-07-26 08:47] VITALS: PULSE 96; RESP 20; O2SAT 92
[2022-07-26 08:50] LABS: Troponin-I High Sensitivity 6.5 ng/L (<3.5-17.0)
[2022-07-26] MEDS: Acetaminophen 325 MG TABLET 975 MG PO (08:50)
[2022-07-26 09:23] VITALS: BP 104/54; PULSE 94; RESP 20; O2SAT 98
[2022-07-26] MEDS: Furosemide 20 MG/2 ML VIAL IVPUSH (09:36)
[2022-07-26] MEDS: Albuterol Sulfate (0.083%) 2.5 MG/3 ML VIAL.NEB 5 MG INHALE (09:51)
[2022-07-26 09:53] VITALS: PULSE 93; RESP 21; O2SAT 99
--- NOTE | 2022-07-26 10:56 | PC.NURSE ---
pt over to commode on own without issue
== END 2022-07-26 13:15 | disposition home or self-care (01) ==
PROVIDERS: Emergency Provider Emergency Medicine; PCP Internal Medicine
DX: J44.1 Chronic obstructive pulmonary disease with (acute) exacerbation (principal); R06.02 Shortness of breath; E11.22 Type 2 diabetes mellitus with diabetic chronic kidney disease; I13.0 Hypertensive heart and chronic kidney disease with heart failure and stage 1 through stage 4 chronic kidney disease, or unspecified chronic kidney disease; N18.9 Chronic kidney disease, unspecified; I50.9 Heart failure, unspecified; Z86.711 Personal history of pulmonary embolism; Z79.01 Long term (current) use of anticoagulants; Z79.4 Long term (current) use of insulin; Z79.899 Other long term (current) drug therapy
CPT/HCPCS: 36415; 71045; 80048; 83880; 84484; 85025; 93005; 94640; 96374; 96375; 99284; 99285; J1940; J2930